=== PATIENT | male | born 1930 | race Caucasian/White ===

== ENCOUNTER 2018-08-22 08:09 | Inpatient (IN) | payer MEDICARE, MEDICAID ==
[~2018-08-22] VITALS: Ht 160 cm; Wt 59.9 kg
[2018-08-22] VITALS (18 sets, daily range): BP systolic 102–180; BP diastolic 44–83
[~2018-08-22 08:09] MED LIST: ceFAZolin sod 1 GM in NS 55 ML IVPB ONE
[2018-08-22] MEDS ORDERED: BENICAR HCT 201 EACH ORAL (09:43)
[2018-08-22] MEDS ORDERED: CELEBREX200 MG ORAL (09:43)
[2018-08-22] MEDS ORDERED: NEXIUM40 MG ORAL (09:43)
[2018-08-22] MEDS ORDERED: CRESTOR10 M2 ORAL (09:43)
[2018-08-22] MEDS ORDERED: ALFUZOSIN HCL10 MG PO (09:43)
[2018-08-22] MEDS ORDERED: BENICAR20 MG ORAL (09:43)
[2018-08-22] MEDS ORDERED: ASPIR 8181 MG ORAL (09:49)
[2018-08-22] MEDS ORDERED: VITAMIN D400 INTLU ORAL (09:49)
[2018-08-22] MEDS ORDERED: BYSTOLIC2.5 MG ORAL (09:49)
[2018-08-22] MEDS ORDERED: LORAZEPAM0.5 MG ORAL (09:49)
[2018-08-22] MEDS ORDERED: [UNRECOGNIZED DRUG - OTHER] PO (09:49)
[2018-08-22] MEDS ORDERED: fentaNYL 100 mcg/2 mL IV ONE (10:06)
--- NOTE | 2018-08-22 11:19 | Pre-Procedure Note/Attestation ---
Pre-Procedure Note/Attestation Complete Prior to Procedure Planned Procedure: not applicable Procedure Narrative: TURP cystolopaxy Indications for Procedure Pre-Operative Diagnosis: bph bladder stones Attestation I attest that I discussed the nature of the procedure; its benefits; risks and complications; and alternatives (and the risks and benefits of such alternatives ), prior to the procedure, with the patient (or the patient's legal senior customer service representative). I attest that, if there was a reasonable possibility of needing a blood transfusion, the patient (or the patient's legal senior customer service representative) was given the [facility] standardized written summary, pursuant to the [place] Blood Safety Act ([place] Health and Safety Code # 1645, as amended). I attest that I re-evaluated the patient just prior to the surgery and that there has been no change in the patient's H&P, except as documented below: Neal Crow MD August 22, 2018 11:19
[2018-08-22] MEDS ORDERED: NS Irrig 1000ml ONE (11:30)
[2018-08-22] MEDS ORDERED: LR 1000ml ONE (11:30)
[2018-08-22] MEDS ORDERED: NS Irrig 2000ml IRRIG ONE (11:30)
[2018-08-22] MEDS ORDERED: NS Irrig 4000ml IRRIG ONE ×2 (11:30→12:14)
--- NOTE | 2018-08-22 12:02 | Anethesia Preoperative Eval ---
Anesthesia Pre-op PMH/ROS General Date of Evaluation: August 22, 2018 Time of Evaluation: 11:15 Anesthesiologist: Meghan ASA Score: ASA 3 Mallampati Score Class I : Soft palate, uvula, fauces, pillars visible Class II: Soft palate, uvula, fauces visible Class III: Soft palate, base of uvula visible Class IV: Only hard plate visible Mallampati Classification: Class II Surgeon: Tristin Diagnosis: BPH Bladder stones Surgical Procedure: TURP, emovbal of bladder stones Anesthesia History: none Family History: no anesthesia problems Allergies: Coded Allergies: No Known Allergies (Unverified , 08/22/18) Medications: see eMAR Patient NPO?: Yes NPO Date: August 21, 2018 NPO Time: 1900 Past Medical History Cardiovascular: Reports: HTN; Denies: CAD, ND, valve dz, arrhythmia, other Pulmonary: Denies: asthma, COPD, GARO, other Gastrointestinal/Genitourinary: Reports: GERD, CRI, other - BPH; Denies: ESRD Neurologic/Psychiatric: Reports: depression/anxiety; Denies: dementia, CVA, TIA, other Endocrine: Denies: DM, hypothyroidism, steroids, other HEENT: Reports: cataract (L), cataract (R); Denies: glaucoma, [place] (L), [place] (R), other Hematology/Immune: Denies: anemia, DVT, bleeding disorder, other Musculoskeletal/Integumentary: Reports: OA; Denies: RA, DJD, DDD, edema, other PMH Narrative: as above see H&P PSxH Narrative: see H&P Anesthesia Pre-op Phys. Exam Physician Exam Last Vital Signs Date Time Temp Pulse Resp B/P (MAP) Pulse Ox O2 Delivery O2 Flow Rate FiO2 08/22/18 09:22 Room Air 08/22/18 09:21 97.8 89 18 180/82 (114) 98 Constitutional: NAD Neurologic: CN 2-12 intact Cardiovascular: RRR, no M/R/G Respiratory: CTA Gastrointestinal: S/NT/ND Airway Exam Mallampati Score: Class II MO: limited Neck: stif ROM: limited Teeth: missing, broken Dentures: no upper, no lower Anesthesia Pre-op A/P Labs see cart Studies Pre-op Studies: EKG - NSR Risk Assessment & Plan Assessment: ASA 3 Plan: GA with LMA Status Change Before Surgery: No Pre-Antibiotics Drug: Ancef 1gr. Given Within 1 Hr of Incision: Yes Time Given: 11:40 Ozzy Christianson MD August 22, 2018 12:02
[2018-08-22] MEDS ORDERED: LR 1000ml 1,000 ML IVLG SCH (12:03)
[2018-08-22] MEDS ORDERED: Ketorolac 30mg Inj IV PRN (12:15)
[2018-08-22] MEDS ORDERED: Hydromorphone 0.5mg/0.5ml inj IVP PRN (12:15)
[2018-08-22] MEDS ORDERED: DiphenhydrAMINE 50mg/ml Inj IVP PRN (12:15)
[2018-08-22] MEDS ORDERED: ePHEDrine 50mg/ml Inj ONE (12:24)
[2018-08-22] MEDS ORDERED: Sodium Chloride 10ml vial INJ ONE (12:24)
[2018-08-22] MEDS ORDERED: HYDROmorphone 1mg/ml Carpuject IVP PRN (13:15)
--- NOTE | 2018-08-22 13:17 | Immediate Post-Op Evaluation ---
Immediate Post-Op Evalulation Immediate Post-Op Evalulation Procedure: TURP removal of bladder stones Date of Evaluation: August 22, 2018 Time of Evaluation: 13:16 IV Fluids: 800 Blood Products: none Estimated Blood Loss: 150 Urinary Output: n/a Blood Pressure Systolic: 148 Blood Pressure Diastolic: 76 Pulse Rate: 78 Respiratory Rate: 20 O2 Sat by Pulse Oximetry: 99 Temperature (Fahrenheit): 97.6 Pain Score (1-10): 1 Nausea: No Vomiting: No Complications none Patient Status: reacts, patent, none Hydration Status: adequate Ozzy Christianson MD August 22, 2018 13:17
--- NOTE | 2018-08-22 13:23 | Brief Operative Note ---
Immediate Post Operative Note Operative Note Pre-op Diagnosis: bph bladder stones Procedure: cystolopaxy, TURP Post-op Diagnosis: same Post-op Diagnosis: same as pre-op Surgeon: Dagoberto Crow Anesthesia: general Specimen: yes Complications: none Condition: stable Fluids: 500 Estimated Blood Loss: minimal Drains: other Implant(s) used?: No Neal Crow MD August 22, 2018 13:23
[2018-08-22 14:14] LABS: BASOPHILS % (AUTO) 0.9 % (0.0-2.0); EOSINOPHILS % (AUTO) 0.8 % (0.0-3.0); HEMATOCRIT 36.3 % (42.0-52.0); HEMOGLOBIN 12.2 G/DL (14.2-18.0); LYMPHOCYTES % (AUTO) 18.1 % (20.0-45.0); MEAN CORPUSCULAR VOLUME 92 FL (80-99); MONOCYTES % (AUTO) 7.6 % (1.0-10.0); NEUTROPHILS % (AUTO) 72.7 % (45.0-75.0); PLATELET COUNT 115 K/UL (150-450); RED BLOOD COUNT 3.95 M/UL (4.70-6.10); RED CELL DISTRIBUTION WIDTH 11.6 % (11.6-14.8); WHITE BLOOD COUNT 5.5 K/UL (4.8-10.8)
[2018-08-22 14:24] LABS: ANION GAP 9 mmol/L (5-15); BLOOD UREA NITROGEN 12 mg/dL (7-18); CALCIUM 7.9 MG/DL (8.5-10.1); CARBON DIOXIDE 25 MMOL/L (21-32); CHLORIDE 109 MMOL/L (98-107); CREATININE 1.2 MG/DL (0.55-1.30); POTASSIUM 3.7 MMOL/L (3.5-5.1); SODIUM 143 MMOL/L (136-145)
--- NOTE | 2018-08-22 15:10 | NUR ---
NURSE NOTES: Stephanie Bruce RN brought patient by bed in stable condition. Alert and oriented x4. Complain of mild pain on surgical site and will continue to monitor. Skin intact and dry. Ingram catheter patent and draining well. CBI on going as ordered. IV dressing intact and dry. Belonging checked. Bed lowest position. Call light within reach. Will continue to monitor.
[2018-08-22] MEDS: D5 1/2NS w/KCl 20mEq 1,000 ML IV SCH (16:36)
[2018-08-22] MEDS: HYDROcodone/Acetamin 5/325 tab ORAL PRN ×2 (16:36→20:44)
[2018-08-22] MEDS: Docusate 100mg cap ORAL SCH (17:19)
--- NOTE | 2018-08-22 19:30 | NUR ---
HAND-OFF: Report given to Rufus RUSSELL. Patient in stable condition.
[2018-08-22] MEDS: ceFAZolin sod 2 GM in D5W 110 ML IV SCH (19:39)
--- NOTE | 2018-08-22 19:45 | NUR ---
NURSE NOTES: Received report DREW Figueroa and rounds made. Received pt laying in bed, AOX4, denies any pain, CBI with bloody red output, no clots noted. IV fluid infusing as ordered, no distress noted. Safety measures maintained. Will continue to monitor.
[2018-08-22] MEDS: Atorvastatin 20mg tab ORAL SCH (20:43)
[2018-08-23] VITALS: BP 120/67
[2018-08-23] MEDS: D5 1/2NS w/KCl 20mEq 1,000 ML IV SCH ×4 (01:00→23:14)
--- NOTE | 2018-08-23 02:50 | NUR ---
NURSE NOTES: PT C/O HEARTBURN. CALLED AND SPOKE WITH DR. MCKEON. ORDERS GIVEN FOR DYSPEPSIA. AWAITING FOR PHARMACY TO VERIFY ORDER.
[2018-08-23] MEDS: ceFAZolin sod 2 GM in D5W 110 ML IV SCH (03:00)
[2018-08-23 04:00] VITALS: BP 120/64
[2018-08-23 07:12] LABS: HEMATOCRIT 27.3 % (42.0-52.0); HEMOGLOBIN 9.4 G/DL (14.2-18.0); MEAN CORPUSCULAR VOLUME 91 FL (80-99); PLATELET COUNT 131 K/UL (150-450); RED CELL DISTRIBUTION WIDTH 11.6 % (11.6-14.8); WHITE BLOOD COUNT 8.4 K/UL (4.8-10.8)
[2018-08-23 07:21] LABS: ANION GAP 7 mmol/L (5-15); BLOOD UREA NITROGEN 13 mg/dL (7-18); CALCIUM 7.9 MG/DL (8.5-10.1); CARBON DIOXIDE 27 MMOL/L (21-32); CHLORIDE 104 MMOL/L (98-107); CREATININE 1.3 MG/DL (0.55-1.30); POTASSIUM 4.4 MMOL/L (3.5-5.1); SODIUM 138 MMOL/L (136-145)
--- NOTE | 2018-08-23 07:34 | NUR ---
HAND-OFF: Report given to DREW Figueroa. Pt in stable condition.
--- NOTE | 2018-08-23 07:35 | NUR ---
NURSE NOTES: Patient lying in bed awake. Complain of pain 5/10 on lower abdomen and no need pain medication at this time. Will offer pain medication again. Skin intact and dry. IV dressing intact and dry. Ingram catheter patent and draining well. CBI on going as ordered. Bed lowest position. Call light within reach. Will continue to monitor.
[2018-08-23 08:00] VITALS: BP 128/67
[2018-08-23] MEDS: Irbesartan 150mg tablet ORAL SCH (09:00)
[2018-08-23] MEDS: Bystolic 2.5mg Tab ORAL SCH (09:00)
[2018-08-23] MEDS: LORazepam 0.5mg tab ORAL SCH (09:00)
[2018-08-23] MEDS: hydroCHLOROthiazide 12.5mg TAB ORAL SCH (09:00)
[2018-08-23] MEDS: Docusate 100mg cap ORAL SCH ×2 (09:03→17:25)
[2018-08-23] MEDS: Vitamin D 1000 IU Tab ORAL SCH (09:03)
--- NOTE | 2018-08-23 09:30 | NUR ---
PT EVALUATION NOTE Patient seen for initial evaluation, see complete evaluation for details. Patient presents with impaired mobility and pain s/p surgical procedure. Patient demonstrated transfers and ambulation x 50 ft with CGA. No assistive device needed. Patient will benefit from skilled inpatient PT intervention to address strength, endurance, safety and functional mobility. Anticipate discharge home once medically cleared by MD. No DME needs identified at this time. Addendum: 08/23/18 at 1244 by ALEXANDRA MOTT PT Amended: Links added.
--- NOTE | 2018-08-23 10:44 | 48 Hour Post Anesthesia Eval ---
Post Anesthesia Evaluation Procedure: TURP removal of bladder stones Date of Evaluation: August 23, 2018 Time of Evaluation: 10:43 Blood Pressure Systolic: 132 0: 76 Pulse Rate: 74 Respiratory Rate: 20 Temperature (Fahrenheit): 97.6 O2 Sat by Pulse Oximetry: 98 Airway: patent Nausea: No Vomiting: No Pain Intensity: 2 Hydration Status: adequate Cardiopulmonary Status: stable Mental Status/LOC: patient returned to baseline Follow-up Care/Observations: n/a Post-Anesthesia Complications: none Follow-up care needed: N/A Ozzy Christianson MD August 23, 2018 10:44
[2018-08-23 12:00] VITALS: BP 118/66
--- NOTE | 2018-08-23 13:59 | NUR ---
CASE MANAGEMENT:REVIEW 88 YR OLD MALE HERE FOR ELECTIVE SURGERY SI: BLADDER STONES 97.5 77 18 118/66 97% ON RA IS: TO SURGERY FOR: CYSTOPEXY, TURP : TO MED/SURG 3 08/23/18 SI: POD #1.....S/P TURP 97.5 77 18 118/66 97% ON RA H/H-9.4/27.3 PLT-131 GLUCOSE+148 CA-7.9 IS: IVF@100/HR BYSTOLIC PO QD PROTONIX PO QD AVAPRO PO QD HCTZ PO QD : MED/SURG STATUS 3 [facility]
[2018-08-23 16:00] VITALS: BP 144/101
--- NOTE | 2018-08-23 16:45 | History and Physical Report ---
DATE OF ADMISSION: 08/22/2018 HISTORY AND PHYSICAL/INTERNAL MEDICINE CONSULTATION HISTORY OF PRESENT ILLNESS: This is an 88-year-old male, who has undergone TURP yesterday by Dr. Neal Crow. He states he is feeling well. His bladder irrigation is continuing and his urine is dark red in color. The patient states he is feeling well. PAST MEDICAL HISTORY: Notable for hypertension, hyperlipidemia, degenerative osteoarthrosis, history of cerebral atherosclerosis. PREVIOUS SURGICAL HISTORY: Include eyes cataract surgery and previous rectal surgery. REVIEW OF SYSTEMS: Denies any headaches, hematemesis, melena, hematochezia, night sweats, or weight loss. HOME MEDICATIONS: Include Bystolic, aspirin, Ativan, vitamin D, Rozerem, Crestor, Nexium, olmesartan, Folgard. ALLERGIES: None reported. PHYSICAL EXAMINATION: GENERAL: Reveals an 88-year-old male. HEENT: Unremarkable. LUNGS: Clear breath sounds bilaterally. ABDOMEN: Soft. EXTREMITIES: There is no edema. NEUROLOGIC: Nonfocal. GENITOURINARY: Ingram catheter in place. LABORATORY DATA: Lab testing shows hemoglobin 9.4. Glucose 148. IMPRESSION: 1. Hypertension. 2. Hyperlipidemia. 3. Osteoarthrosis. 4. Status post TURP. DISCUSSION: Continue present care and medications. I will restart his home medications. Hold aspirin for another day. Continue bladder irrigation. Check labs in the a.m. Discharge planning for home tomorrow. Santo Short M.D. DR: RALPH JOB#: [id number] CC:
[2018-08-23] MEDS ORDERED: NS Irrig 4000ml IRRIG ONE (17:18)
--- NOTE | 2018-08-23 19:30 | NUR ---
HAND-OFF: Report given to Shalom RUSSELL. Patient in stable condition.
--- NOTE | 2018-08-23 19:45 | NUR ---
NURSE NOTES: Received report from DREW Figueroa. Patient in bed awake showing no signs of acute distress. Respiration even and non labored on room air. No sob noted. CBI patent and intact. Drains showing light red and some clots. IV line patent and intact. Bed in lowest position, wheels locked, and bed alarm on. Call light within reach. All needs attended and met will continue plan of care.
[2018-08-23 20:00] VITALS: BP 143/75
[2018-08-23] MEDS: Atorvastatin 20mg tab ORAL SCH (21:24)
[2018-08-24] VITALS (7 sets, daily range): BP systolic 111–148; BP diastolic 55–77
--- NOTE | 2018-08-24 01:31 | NUR ---
NURSE NOTES:Patient received from Tamika Mcdaniel patient denies any paina t this time . no s./s of distress noted . CBI draining to light pink color no clots noted. IVF infusing well . call light within reach . bed in low position at all times . well continue to monitor..
--- NOTE | 2018-08-24 01:31 | NUR ---
Report given to SHELLY Muhammad. Patient stable.
--- NOTE | 2018-08-24 06:00 | NUR ---
NURSE NOTES:Patient 13,100 intake 14,000 output true output 850 cc
[2018-08-24 07:24] LABS: BASOPHILS % (AUTO) 0.5 % (0.0-2.0); EOSINOPHILS % (AUTO) 1.5 % (0.0-3.0); HEMATOCRIT 25.4 % (42.0-52.0); HEMOGLOBIN 8.7 G/DL (14.2-18.0); LYMPHOCYTES % (AUTO) 13.1 % (20.0-45.0); MEAN CORPUSCULAR VOLUME 92 FL (80-99); MONOCYTES % (AUTO) 9.2 % (1.0-10.0); NEUTROPHILS % (AUTO) 75.9 % (45.0-75.0); PLATELET COUNT 118 K/UL (150-450); RED BLOOD COUNT 2.77 M/UL (4.70-6.10); RED CELL DISTRIBUTION WIDTH 11.9 % (11.6-14.8); WHITE BLOOD COUNT 8.2 K/UL (4.8-10.8)
--- NOTE | 2018-08-24 07:30 | NUR ---
HAND-OFF: Report given to Shani Serrano
--- NOTE | 2018-08-24 07:30 | NUR ---
NURSE NOTES: Received report from DREW Muhammad. The patient denies of acute distress or shortness of breath. The patient's bed in the lowest position, call light in reach, and fall precaution reinforced. Will continue plan of care.
[2018-08-24 08:06] LABS: ANION GAP 5 mmol/L (5-15); BLOOD UREA NITROGEN 7 mg/dL (7-18); CALCIUM 8.5 MG/DL (8.5-10.1); CARBON DIOXIDE 28 MMOL/L (21-32); CHLORIDE 110 MMOL/L (98-107); CREATININE 1.2 MG/DL (0.55-1.30); POTASSIUM 4.4 MMOL/L (3.5-5.1); SODIUM 143 MMOL/L (136-145)
--- NOTE | 2018-08-24 08:17 | Pulmonology Progress Note ---
Assessment/Plan Assessment/Plan IMPRESSION: 1. Hypertension. 2. Hyperlipidemia. 3. Osteoarthrosis. 4. Status post TURP. DISCUSSION: Continue present care and medications. Hold aspirin for another day. Continue bladder irrigation. Check labs in the a.m. Discharge planning for home tomorrow. Subjective Interval Events: Still having hematuria Constitutional: Reports: no symptoms HEENT: Repors: no symptoms Respiratory: Reports: no symptoms Cardiovascular: Reports: no symptoms Gastrointestinal/Abdominal: Reports: no symptoms Allergies: Coded Allergies: No Known Allergies (Unverified , 08/22/18) Objective Last 24 Hour Vital Signs Date Time Temp Pulse Resp B/P (MAP) Pulse Ox O2 Delivery O2 Flow Rate FiO2 08/24/18 04:00 97.5 72 18 128/76 (93) 08/24/18 00:00 98.0 77 18 148/71 (96) 97 08/23/18 21:00 Room Air 08/23/18 20:00 97.8 98 18 143/75 (97) 99 08/23/18 16:00 97.4 72 19 144/101 (115) 97 08/23/18 12:00 97.5 77 18 118/66 (83) 97 08/23/18 10:44 74 20 98 08/23/18 09:00 Room Air Intake and Output 08/23/18 08/24/18 18:59 06:59 Intake Total 220 ml Output Total 1600 ml 850 ml Balance -1380 ml -850 ml Intake Oral 120 ml IV Total 100 ml Output Urine Total 1600 ml 850 ml General Appearance: no acute distress HEENT: normocephalic Respiratory/Chest: chest wall non-tender, lungs clear Cardiovascular: normal peripheral pulses, normal rate Abdomen: normal bowel sounds, soft, non tender Laboratory Tests 08/24/18 05:46: White Blood Count 8.2, Red Blood Count 2.77L, Hemoglobin 8.7L, Hematocrit 25.4L , Mean Corpuscular Volume 92, Mean Corpuscular Hemoglobin 31.4H, Mean Corpuscular Hemoglobin Concent 34.3, Red Cell Distribution Width 11.9, Platelet Count 118L, Mean Platelet Volume 8.4, Neutrophils (%) (Auto) 75.9H, Lymphocytes (%) (Auto) 13.1L, Monocytes (%) (Auto) 9.2, Eosinophils (%) (Auto) 1.5, Basophils (%) (Auto) 0.5, Sodium Level 143, Potassium Level 4.4, Chloride Level 110H, Carbon Dioxide Level 28, Anion Gap 5, Blood Urea Nitrogen 7, Creatinine 1.2, Estimat Glomerular Filtration Rate , Glucose Level 108H, Calcium Level 8.5 Current Medications Medications (Trade) Dose Ordered Sig/German Route PRN Reason Start Time Stop Time Status Last Admin Dose Admin Acetaminophen (Tylenol) 650 mg Q4H PRN ORAL FEVER 08/22/18 13:15 09/21/18 13:14 Acetaminophen (Tylenol) 650 mg Q6H PRN ORAL Mild Pain (Pain Scale 1-3) 08/22/18 13:15 09/21/18 13:14 Acetaminophen/ Hydrocodone Bitart ([place] 5/325) 1 tab Q4H PRN ORAL Moderate Pain (Pain Scale 4-6) 08/22/18 13:15 08/29/18 13:14 08/22/18 20:44 Al Hydroxide/Mg Hydroxide (Mylanta) 30 ml Q6H PRN ORAL DYSPEPSIA 08/23/18 02:45 09/22/18 02:44 08/23/18 22:08 Atorvastatin Calcium (Lipitor) 20 mg BEDTIME ORAL 08/22/18 21:00 09/21/18 20:59 08/23/18 21:24 Dextrose/ Electrolytes 1,000 ml @ 100 mls/hr Q10H IV 08/22/18 15:00 09/21/18 14:59 08/23/18 23:14 Docusate Sodium (Colace) 100 mg TWICE A DAY ORAL 08/22/18 18:00 09/21/18 17:59 08/23/18 17:25 Hydrochlorothiazide (Hydrodiuril) 12.5 mg DAILY ORAL 08/23/18 09:00 09/22/18 08:59 Hydromorphone HCl (Dilaudid) 1 mg Q3H PRN IVP pain score 4-6 08/22/18 13:15 08/29/18 13:14 Irbesartan (Avapro) 150 mg DAILY ORAL 08/23/18 09:00 09/22/18 08:59 Lorazepam (Ativan) 0.5 mg DAILY ORAL 08/23/18 09:00 08/30/18 08:59 Nebivolol (Bystolic) 5 mg DAILY ORAL 08/23/18 09:00 09/22/18 08:59 Ondansetron HCl (Zofran) 4 mg Q6H PRN IVP Nausea & Vomiting 08/22/18 13:15 09/21/18 13:14 Pantoprazole (Protonix) 40 mg DAILY ORAL 08/23/18 09:00 09/22/18 08:59 08/23/18 09:03 Temazepam (Restoril) 7.5 mg DAILYPRN PRN ORAL Insomnia 08/22/18 13:15 08/29/18 13:14 08/23/18 23:14 Vitamin D (Vitamin D) 1,000 intlu DAILY ORAL 08/23/18 09:00 09/22/18 08:59 08/23/18 09:03 Santo Short MD August 24, 2018 08:17
[2018-08-24] MEDS ORDERED: COLACE100 MG ORAL (08:18)
[2018-08-24] MEDS ORDERED: NORCO 5-325 TA1 EACH ORAL (08:18)
[2018-08-24] MEDS: LORazepam 0.5mg tab ORAL SCH (09:42)
[2018-08-24] MEDS: Irbesartan 150mg tablet ORAL SCH (09:43)
[2018-08-24] MEDS: Bystolic 2.5mg Tab ORAL SCH (09:43)
[2018-08-24] MEDS: Docusate 100mg cap ORAL SCH ×2 (09:44→18:00)
[2018-08-24] MEDS: hydroCHLOROthiazide 12.5mg TAB ORAL SCH (09:44)
[2018-08-24] MEDS: Vitamin D 1000 IU Tab ORAL SCH (09:44)
--- NOTE | 2018-08-24 12:10 | NUR ---
NURSE NOTES: Based on nursing home physician's vital sign log, the patient's temperature was 101.7F. After checking the patient temperature, check back the temperature again. Based on my reading, his temperature was 98.2F. No signs and symptoms of infection or hot flushes. Will continue to monitor closely. Addendum: 08/24/18 at 1547 by Eliel Rodgers RN Notified to charge nurse regarding the temperature.
--- NOTE | 2018-08-24 12:40 | NUR ---
NURSE NOTES: Notified to Dr. Crow regarding drop in hemoglobin level of 9.4 to 8.7 with color change in more red in urine bag with irrigation. No new order but close monitoring per Dr. Crow. Will continue to monitor.
--- NOTE | 2018-08-24 15:30 | NUR ---
NURSE NOTES: Received Levaquin QD #7, Colace, and [place] 5/325 #30 received from [facility]. Counted Levaquin and [place] with the patient. Will give to the pharmacy so that he gets the medication before discharge.
--- NOTE | 2018-08-24 15:43 | NUR ---
NURSE NOTES: Notified to Dr. Crow that small size blood clot came out and the color of urine output through irrigation got roll inspector red. Will follow up for Dr. Crow and will continue to monitor the patient.
--- NOTE | 2018-08-24 16:51 | NUR ---
NURSE NOTES: Medication receipt # is [id number]. It will be stored at our pharmacy until discharge.
[2018-08-24] MEDS: D5 1/2NS w/KCl 20mEq 1,000 ML IV SCH (17:06)
--- NOTE | 2018-08-24 19:30 | NUR ---
HAND-OFF: Report given to Compa Rodgers RN. The patint is resting on the bed without acute distress or shortness of breath. The patient's bed in the lowest position, call light in reach, and fall precaution reinforced. Endorsed plan of care.
--- NOTE | 2018-08-24 19:31 | NUR ---
NURSE NOTES: Received patient in no apparent distress. A&OX4. IV site patent and intact. Three way Ingram cath on, draining well by gravity, continuos irrigation on, pinkish urine noted. Bed in lowest position. Call light within reach. Will continue to monitor.
[2018-08-24] MEDS: Atorvastatin 20mg tab ORAL SCH (21:25)
[2018-08-25] VITALS: BP 128/57
[2018-08-25] MEDS: D5 1/2NS w/KCl 20mEq 1,000 ML IV SCH (03:22)
[2018-08-25 04:00] VITALS: BP 125/62
[2018-08-25 07:22] LABS: BASOPHILS % (AUTO) 0.6 % (0.0-2.0); EOSINOPHILS % (AUTO) 1.9 % (0.0-3.0); HEMATOCRIT 24.5 % (42.0-52.0); HEMOGLOBIN 8.4 G/DL (14.2-18.0); LYMPHOCYTES % (AUTO) 14.2 % (20.0-45.0); MEAN CORPUSCULAR VOLUME 91 FL (80-99); MONOCYTES % (AUTO) 9.7 % (1.0-10.0); NEUTROPHILS % (AUTO) 73.6 % (45.0-75.0); PLATELET COUNT 118 K/UL (150-450); RED BLOOD COUNT 2.68 M/UL (4.70-6.10); RED CELL DISTRIBUTION WIDTH 11.9 % (11.6-14.8); WHITE BLOOD COUNT 8.7 K/UL (4.8-10.8)
--- NOTE | 2018-08-25 07:35 | NUR ---
NURSE NOTES: Report received from Compa RUSSELL, rounds made. Patient alert, oriented x4, calm. No SOB on RA, pain or NV. IVF infusing to right hand at 100 ml/hr, as ordered, site asymptomatic. [address], CBI running at low to moderate rate, bright red output noted in drainage bag. Bilateral SCDs on. Encouraged IS. Call light in reach, bed in lowest position, will continue to monitor.
[2018-08-25 07:44] LABS: ANION GAP 5 mmol/L (5-15); BLOOD UREA NITROGEN 15 mg/dL (7-18); CALCIUM 8.7 MG/DL (8.5-10.1); CARBON DIOXIDE 28 MMOL/L (21-32); CHLORIDE 106 MMOL/L (98-107); CREATININE 1.3 MG/DL (0.55-1.30); POTASSIUM 4.5 MMOL/L (3.5-5.1); SODIUM 139 MMOL/L (136-145)
--- NOTE | 2018-08-25 07:49 | NUR ---
HAND-OFF: Report given to Hanna RUSSELL.
[2018-08-25 08:00] VITALS: BP 112/52
[2018-08-25] MEDS: LORazepam 0.5mg tab ORAL SCH (10:12)
[2018-08-25] MEDS: hydroCHLOROthiazide 12.5mg TAB ORAL SCH (10:13)
[2018-08-25] MEDS: Docusate 100mg cap ORAL SCH ×2 (10:17→18:02)
[2018-08-25] MEDS: Bystolic 2.5mg Tab ORAL SCH (10:17)
[2018-08-25] MEDS: Irbesartan 150mg tablet ORAL SCH (10:17)
[2018-08-25] MEDS: Vitamin D 1000 IU Tab ORAL SCH (10:18)
[2018-08-25] MEDS ORDERED: NS Irrig 4000ml IRRIG ONE (10:49)
[2018-08-25 12:00] VITALS: BP 147/71
--- NOTE | 2018-08-25 12:00 | NUR ---
NURSE NOTES: CBI/IVF discontinued at 1030. Catheter stopper applied. FC remains in place. Patient denies abdominal pain or pressure. Patient up with PT, ambulated in halls with walker, gait steady, tolerated well. Will continue to monitor.
--- NOTE | 2018-08-25 15:13 | Pulmonology Progress Note ---
Assessment/Plan Assessment/Plan IMPRESSION: 1. Hypertension. 2. Hyperlipidemia. 3. Osteoarthrosis. 4. Status post TURP. DISCUSSION: Continue present care and medications. Hold aspirin for another day. Continue bladder irrigation. Discharge planning for home today. Subjective Interval Events: FOr Dc home today; feels well Constitutional: Reports: no symptoms HEENT: Repors: no symptoms Respiratory: Reports: no symptoms Cardiovascular: Reports: no symptoms Gastrointestinal/Abdominal: Reports: no symptoms Genitourinary: Reports: no symptoms Neurologic: Reports: no symptoms Allergies: Coded Allergies: No Known Allergies (Unverified , 08/22/18) Objective Last 24 Hour Vital Signs Date Time Temp Pulse Resp B/P (MAP) Pulse Ox O2 Delivery O2 Flow Rate FiO2 08/25/18 12:00 98.0 71 16 147/71 (96) 98 08/25/18 10:17 150/63 08/25/18 08:00 98.1 98 16 112/52 (72) 98 08/25/18 04:00 97.8 65 19 125/62 (83) 99 08/25/18 00:00 98.0 61 18 128/57 (80) 98 08/24/18 21:00 Room Air 08/24/18 20:00 97.7 62 18 127/55 (79) 98 08/24/18 16:00 98.2 64 20 111/65 (80) 96 Intake and Output 08/24/18 08/25/18 19:00 07:00 Intake Total 500 ml 1200 ml Output Total 1600 ml 29366 ml Balance -1100 ml -8800 ml IV Total 500 ml 1200 ml Output Urine Total 1600 ml 52649 ml General Appearance: no acute distress HEENT: normocephalic Respiratory/Chest: chest wall non-tender, lungs clear Cardiovascular: normal peripheral pulses, normal rate Abdomen: normal bowel sounds Laboratory Tests 08/25/18 06:23: White Blood Count 8.7, Red Blood Count 2.68L, Hemoglobin 8.4L, Hematocrit 24.5L , Mean Corpuscular Volume 91, Mean Corpuscular Hemoglobin 31.4H, Mean Corpuscular Hemoglobin Concent 34.4, Red Cell Distribution Width 11.9, Platelet Count 118L, Mean Platelet Volume 8.9, Neutrophils (%) (Auto) 73.6, Lymphocytes ( %) (Auto) 14.2L, Monocytes (%) (Auto) 9.7, Eosinophils (%) (Auto) 1.9, Basophils (%) (Auto) 0.6, Sodium Level 139, Potassium Level 4.5, Chloride Level 106, Carbon Dioxide Level 28, Anion Gap 5, Blood Urea Nitrogen 15, Creatinine 1.3, Estimat Glomerular Filtration Rate , Glucose Level 97, Calcium Level 8.7 Current Medications Medications (Trade) Dose Ordered Sig/German Route PRN Reason Start Time Stop Time Status Last Admin Dose Admin Acetaminophen (Tylenol) 650 mg Q4H PRN ORAL FEVER 08/22/18 13:15 09/21/18 13:14 Acetaminophen (Tylenol) 650 mg Q6H PRN ORAL Mild Pain (Pain Scale 1-3) 08/22/18 13:15 09/21/18 13:14 Acetaminophen/ Hydrocodone Bitart ([place] 5/325) 1 tab Q4H PRN ORAL Moderate Pain (Pain Scale 4-6) 08/22/18 13:15 08/29/18 13:14 08/22/18 20:44 Al Hydroxide/Mg Hydroxide (Mylanta) 30 ml Q6H PRN ORAL DYSPEPSIA 08/23/18 02:45 09/22/18 02:44 08/23/18 22:08 Atorvastatin Calcium (Lipitor) 20 mg BEDTIME ORAL 08/22/18 21:00 09/21/18 20:59 08/24/18 21:25 Docusate Sodium (Colace) 100 mg TWICE A DAY ORAL 08/22/18 18:00 09/21/18 17:59 08/25/18 10:17 Hydrochlorothiazide (Hydrodiuril) 12.5 mg DAILY ORAL 08/23/18 09:00 09/22/18 08:59 08/25/18 10:13 Hydromorphone HCl (Dilaudid) 1 mg Q3H PRN IVP pain score 4-6 08/22/18 13:15 08/29/18 13:14 Irbesartan (Avapro) 150 mg DAILY ORAL 08/23/18 09:00 09/22/18 08:59 08/25/18 10:17 Lorazepam (Ativan) 0.5 mg DAILY ORAL 08/23/18 09:00 08/30/18 08:59 08/25/18 10:12 Nebivolol (Bystolic) 5 mg DAILY ORAL 08/23/18 09:00 09/22/18 08:59 08/25/18 10:17 Ondansetron HCl (Zofran) 4 mg Q6H PRN IVP Nausea & Vomiting 08/22/18 13:15 09/21/18 13:14 Pantoprazole (Protonix) 40 mg DAILY ORAL 08/23/18 09:00 09/22/18 08:59 08/25/18 10:12 Temazepam (Restoril) 7.5 mg DAILYPRN PRN ORAL Insomnia 08/22/18 13:15 08/29/18 13:14 08/23/18 23:14 Vitamin D (Vitamin D) 1,000 intlu DAILY ORAL 08/23/18 09:00 09/22/18 08:59 08/25/18 10:18 Santo Short MD August 25, 2018 15:13
[2018-08-25 16:00] VITALS: BP 128/57
--- NOTE | 2018-08-25 17:00 | NUR ---
NURSE NOTES: Patient states he has no ride home. Friend not available to take patient home. Nursing station supervisor notified for Taxi [employer]oucher.
[2018-08-25] MEDS ORDERED: Sterile Water Irrig 1000ml IRRIG ONE (18:29)
--- NOTE | 2018-08-25 18:33 | NUR ---
NURSE NOTES: Discharge instructions, prescription medications (filled by pharmacy) and supplies (basin x2, leg bag, large drainage bag, canister), reviewed with patient and his helper for tonight, verbalized understanding. Demonstrated on how to connect and disconnect drainage bag and leg bag, verbalized understanding. Leg bag connected. Denies abdominal pain or pressure. All belongings, discharge instructions, prescription medication and supplies given to patient. IV heplock removed, no active bleeding. Patient sent down to lobby via in stable condition. Discharged home at 1833.
--- NOTE | 2018-08-27 08:13 | Discharge Summary ---
Discharge Summary Hospital Course Date of Admission August 22, 2018 at 08:39 Date of Discharge August 25, 2018 at 18:30 Admitting Diagnosis BPH, bladder stones Reason for Hospitalization: elective surgery HPI Justin Price, 88 year old male, was admitted on August 22, 2018 at 08:39 for enlarged prostate, bladder stones. Patient was admitted for elective surgery. Consultations Dr Short/IM Procedures s/p 08/22/[address] Crow TURP, removal of bladder stones/ cystolithopaxy Hospital Course Course of recovery unremarkable Patient initially was on IV fluids with continuous bladder irrigation Urine output closely monitored, manual irrigation provided as needed Pain management was addressed Patient started on empiric antibiotic Bowel regimen instituted Patient slowly started on diet and was advanced as tolerated. Patient was ambulated with walker under physical therapist supervision Fall precautions maintained , patient was able to ambulate safely Blood pressure was managed with beta-chelsie, ARB and hydrochlorothiazide, remained stable Statin continued Aspirin was on hold prior to procedure and will be on hold for additional one day upon discharge Hemoglobin and hematocrit were closely monitored, prior to discharge hemoglobin 8.4, hematocrit 24.5. Urine output cleared, no clots Continuous ladder irrigation was discontinued Patient was stable for discharge home: urine output clear, pain controlled, ambulated safely, tolerated diet, hemodynamically stable Discharge instruction and supplies provided Nursing staff reviewed with the patient and demonstrated how to connect and disconnect drainage bag and leg bag Patient verbalized understanding Ingram catheter was changed to leg bag prior to discharge Patient was stable for discharge Outpatient follow-up with surgeon as advised FINAL DIAGNOSES BPH Bladder stones s/p TURP, removal of bladder stones Hypertension Hyperlipidemia Osteoarthritis Discharge Medications New Medications: Docusate Sodium* (Colace*) 100 Mg Capsule 100 MG ORAL TWICE A DAY for 14 Days, CAP Hydrocodone Bit/Acetaminophen 5-325* (Dexter 5-325*) 1 Each Tablet 1 TAB ORAL Q4H PRN for 7 Days, TAB Continued Medications: Alfuzosin* (Uroxatrol*) 10 Mg Tab.er.24h 10 MG PO DAILY, TAB (This prescription has been renewed) Take immediately after a meal at the same time each day. Swallow tablet whole; do not crush or chew Aspirin* (Aspir 81*) 81 Mg Tablet. 81 MG ORAL DAILY, TAB (This prescription has been renewed) Celecoxib* (Celebrex*) 200 Mg Capsule 200 MG ORAL DAILY, CAP (This prescription has been renewed) Esomeprazole Magnesium (Nexium) 40 Mg Capsule.dr 40 MG ORAL DAILY, CAP (This prescription has been renewed) Lorazepam* (Lorazepam*) 0.5 Mg Tablet 0.5 MG ORAL DAILY, TAB (This prescription has been renewed) Nebivolol Hcl* (Bystolic*) 2.5 Mg Tablet 5 MG ORAL DAILY, TAB (This prescription has been renewed) Olmesartan/Hydrochlorothiazide 20-12.5 (Benicar Hct 20-12.5 Mg Tablet) 1 Each Tablet 1 TAB ORAL DAILY, TAB (This prescription has been renewed) Rosuvastatin Calcium* (Crestor*) 10 Mg Tablet 10 MG ORAL DAILY, TAB (This prescription has been renewed) [Virt Shannen] () 25 MG PO DAILY (This prescription has been renewed) Vitamin D (Vitamin D3) 400 Unit Tablet 1000 UNITS ORAL DAILY, TAB (This prescription has been renewed) Discharge Condition Upon Discharge: stable Discharge Disposition Patient was discharged home Discharge Instructions Discharge Instructions Special Instructions I have been assigned to complete a D/C Summary on this account. I was not involved in the patient management Tish Alejandra NP August 27, 2018 08:13
--- NOTE | 2018-08-29 03:00 | Operative Note - Dictated ---
DATE OF OPERATION: 08/22/2018 PREOPERATIVE DIAGNOSES: 1. Multiple bladder stones. 2. BPH. POSTOPERATIVE DIAGNOSES: 1. Multiple bladder stones. 2. BPH. OPERATIONS: 1. Cystolitholapaxy with laser. 2. Transurethral resection of the prostate. OPERATED BY: Neal Crow M.D. ANESTHESIA: General. FINDINGS: Enlarged prostate, multiple bladder stones. INDICATIONS FOR SURGERY: The patient had recurrent UTIs and hematuria. Cystoscopy showed multiple bladder stones and BPH. Treatment options were explained to the patient including all potential complications and he signed the consent. DESCRIPTION OF PROCEDURE: The patient was brought to the operating room, placed in lithotomy position, and prepped and draped in standard fashion. Under general anesthesia, cystoscope was introduced into the bladder. Using 1000 micron fiber, the stones were fragmented into small pieces and extracted with the Azalea evacuator. After that bipolar TURP was performed without any complications. All the chips were evacuated. Bleeding was stopped with the button electrode. A 24-Persian Ingram catheter was placed . The patient tolerated the procedure well. Neal Crow M.D. DR: JAKOB JOB#: [id number] CC:
== END 2018-08-25 18:30 | disposition home or self-care (01) | DRG 714 ==
LOC: SDSOVERFLO 08:39 → 3E 14:44
PROC: 0TCB8ZZ Extirpation of Matter from Bladder, Via Natural or Artificial Opening Endoscopic (ICD-10-PCS; principal; 2018-08-22 11:15)
PROC: 0T9B80Z Drainage of Bladder with Drainage Device, Via Natural or Artificial Opening Endoscopic (ICD-10-PCS; principal; 2018-08-22 11:15)
PROC: 0V508ZZ Destruction of Prostate, Via Natural or Artificial Opening Endoscopic (ICD-10-PCS; principal; 2018-08-22 11:15)
DX: N40.0 Benign prostatic hyperplasia without lower urinary tract symptoms (principal); N21.0 Calculus in bladder; Z79.82 Long term (current) use of aspirin; M19.90 Unspecified osteoarthritis, unspecified site; I10 Essential (primary) hypertension; E78.5 Hyperlipidemia, unspecified
CPT/HCPCS: 36415; 80048; 85007; 85025; 86850; 86900; 86901; 87081; 94003; 94150

== ENCOUNTER 2019-01-01 15:47 | Inpatient (IN) | payer MEDICARE, MEDICAID ==
[~2019-01-01] VITALS: Ht 160 cm; Wt 60.8 kg
[~2019-01-01 15:47] MED LIST changes: +ALFUZOSIN HCL10 MG PO; +ASPIR 8181 MG ORAL; +BENICAR HCT 201 EACH ORAL; +BENICAR20 MG ORAL; +BYSTOLIC2.5 MG ORAL; +CELEBREX200 MG ORAL; +COLACE100 MG ORAL; +CRESTOR10 M2 ORAL; +LORAZEPAM0.5 MG ORAL; +NEXIUM40 MG ORAL; +NORCO 5-325 TA1 EACH ORAL; +VITAMIN D400 INTLU ORAL; +[UNRECOGNIZED DRUG - OTHER] PO; -ceFAZolin sod 1 GM in NS 55 ML IVPB ONE
[2019-01-01] MEDS ORDERED: UNOBMED (15:56)
[2019-01-01] MEDS ORDERED: Omnipaue 350mg/ml 100ml vial INJ PRN (16:15)
[2019-01-01 16:34] VITALS: BP 190/68
--- NOTE | 2019-01-01 16:41 | NUR ---
ED Nurse Note: PT BP 180/73, no signs of respiratory distress on RA, PT is relaxed, calm, in bed in semi-fowlers position, side rails x 2 up. PT say he has no pain. Friend at bedside. MD Shirley made aware of PT BP.
--- NOTE | 2019-01-01 16:44 | NUR ---
ED Nurse Note: MD Shirley made aware about BP 180/73, told to hold 500cc NS.
[2019-01-01 16:46] LABS: EOSINOPHILS % (AUTO) 1.4 % (0.0-3.0); HEMOGLOBIN 11.2 G/DL (14.2-18.0); MEAN CORPUSCULAR VOLUME 83 FL (80-99); NEUTROPHILS % (AUTO) 74.6 % (45.0-75.0); PLATELET COUNT 267 K/UL (150-450); RED BLOOD COUNT 4.23 M/UL (4.70-6.10); RED CELL DISTRIBUTION WIDTH 16.5 % (11.6-14.8); WHITE BLOOD COUNT 8.6 K/UL (4.8-10.8)
[2019-01-01 16:59] LABS: INR 1.1 (0.9-1.1)
[2019-01-01 17:05] LABS: ANION GAP 11 mmol/L (5-15); BLOOD UREA NITROGEN 20 mg/dL (7-18); CALCIUM 9.3 MG/DL (8.5-10.1); CARBON DIOXIDE 25 MMOL/L (21-32); CHLORIDE 108 MMOL/L (98-107); CREATININE 1.4 MG/DL (0.55-1.30); POTASSIUM 4.4 MMOL/L (3.5-5.1); SODIUM 144 MMOL/L (136-145)
--- NOTE | 2019-01-01 17:16 | Emergency Room Report ---
History of Present Illness General Chief Complaint: Dyspnea/Respdistress Source: Patient Present Illness HPI 88-year-old male presents ED for evaluation. Patient presenting with shortness of breath which occurred last night. States he has no shortness of breath at this time. 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 Denies chest pain. States that 3 weeks ago he fell and injured his right hip. Complaining of some right hip pain, dull, 5 out of 10, nonradiating. Is able to walk. Denies any other injuries. Denies cough. No other aggravating relieving factors. Denies any other associated symptoms Allergies: Coded Allergies: No Known Allergies (Unverified , 08/22/18) Patient History Past Medical History: HTN Past Surgical History: none Pertinent Family History: none Social History: Denies: smoking, alcohol use, drug use Immunizations: UTD Reviewed Nursing Documentation: PMH: Agreed; PSxH: Agreed Nursing Documentation-PMH Past Medical History: No History, Except For Hx Cardiac Problems: Yes Hx Hypertension: Yes Hx Cancer: No Hx Gastrointestinal Problems: Yes Hx Neurological Problems: No Review of Systems All Other Systems: negative except mentioned in HPI Physical Exam Vital Signs Date Time Temp Pulse Resp B/P (MAP) Pulse Ox O2 Delivery O2 Flow Rate FiO2 01/01/19 15:50 98.2 62 16 192/77 (115) 93 Room Air Sp02 EP Interpretation: reviewed, normal General Appearance: no apparent distress, alert, GCS 15, non-toxic Head: normocephalic, atraumatic Eyes: bilateral eye normal inspection, bilateral eye PERRL ENT: hearing grossly normal, normal pharynx, no angioedema, normal voice Neck: full range of motion, supple/symm/no masses Respiratory: chest non-tender, lungs clear, normal breath sounds, speaking full sentences Cardiovascular #1: regular rate, rhythm, no edema Cardiovascular #2: 2+ carotid (R), 2+ carotid (L), 2+ radial (R), 2+ radial (L) , 2+ dorsalis pedis (R), 2+ dorsalis pedis (L) Gastrointestinal: normal bowel sounds, non tender, soft, non-distended, no guarding, no rebound Rectal: deferred Genitourinary: normal inspection, no CVA tenderness Musculoskeletal: back normal, gait/station normal, normal range of motion, tender - R hip Neurologic: alert, oriented x3, responsive, motor strength/tone normal, sensory intact, speech normal Psychiatric: judgement/insight normal, memory normal, mood/affect normal, no suicidal/homicidal ideation Reflexes: 3+ bicep (R), 3+ bicep (L), 3+ tricep (R), 3+ tricep (L), 3+ knee (R) , 3+ knee (L) Skin: no rash Lymphatic: no adenopathy Medical Decision Making Diagnostic Impression: Primary Impression: Dyspnea Qualified Codes: R06.00 - Dyspnea, unspecified Additional Impression: Pleural effusion ER Course Hospital Course 88 yo M presents with SOB. h/o PE. Differential diagnoses include: Pneumonia, CHF exacerbation, pneumothorax, fluid overload Clinical course Patient placed on stretcher. On court recording monitor with stable vitals. After initial history and physical, I ordered labs, IV fluids, EKG, chest x-ray, CTA chest Labs - no leukocytosis, hb/hct stable, electrolytes ok, troponins negative, BNP elevated EKG - NSr, no acute ischemic changes intperreted by me CXR - bilateral effusions CTA chest- no PE, bilateral effusions with loculations I discussed findings with the patient. Given Lasix. Given antibiotics. Case discussed with Dr. Burns and he agreed to the patient to his service for further care and support I feel this is a highly complex case requiring extensive working including EKG/ Rhythm strip, Xray/CT/US, Blood/urine lab work, repeat exams while in ED, and administration of strong opiates/narcotics for pain control, admission to hospital or close patient follow up. Diagnosis - dyspnea, pleural effusion Patient admitted to telemetry in serious condition Labs Test 01/01/19 16:24 White Blood Count 8.6 K/UL (4.8-10.8) Red Blood Count 4.23 M/UL (4.70-6.10) Hemoglobin 11.2 G/DL (14.2-18.0) Hematocrit 35.0 % (42.0-52.0) Mean Corpuscular Volume 83 FL (80-99) Mean Corpuscular Hemoglobin 26.5 PG (27.0-31.0) Mean Corpuscular Hemoglobin Concent 32.1 G/DL (32.0-36.0) Red Cell Distribution Width 16.5 % (11.6-14.8) Platelet Count 267 K/UL (150-450) Mean Platelet Volume 7.4 FL (6.5-10.1) Neutrophils (%) (Auto) 74.6 % (45.0-75.0) Lymphocytes (%) (Auto) 14.0 % (20.0-45.0) Monocytes (%) (Auto) 9.0 % (1.0-10.0) Eosinophils (%) (Auto) 1.4 % (0.0-3.0) Basophils (%) (Auto) 1.0 % (0.0-2.0) Prothrombin Time 11.2 SEC (9.30-11.50) Prothromb Time International Ratio 1.1 (0.9-1.1) Activated Partial Thromboplast Time 29 SEC (23-33) Sodium Level 144 MMOL/L (136-145) Potassium Level 4.4 MMOL/L (3.5-5.1) Chloride Level 108 MMOL/L (98-107) Carbon Dioxide Level 25 MMOL/L (21-32) Anion Gap 11 mmol/L (5-15) Blood Urea Nitrogen 20 mg/dL (7-18) Creatinine 1.4 MG/DL (0.55-1.30) Estimat Glomerular Filtration Rate mL/min (>60) Glucose Level 89 MG/DL (74-106) Calcium Level 9.3 MG/DL (8.5-10.1) Total Bilirubin 1.2 MG/DL (0.2-1.0) Direct Bilirubin 0.2 MG/DL (0.0-0.3) Aspartate Amino Transf (AST/SGOT) 92 U/L (15-37) Alanine Aminotransferase (ALT/SGPT) 88 U/L (12-78) Alkaline Phosphatase 68 U/L (46-116) Total Creatine Kinase 203 U/L (26-308) Creatine Kinase MB 2.5 NG/ML (0.0-3.6) Creatine Kinase MB Relative Index 1.2 Troponin I 0.000 ng/mL (0.000-0.056) Pro-B-Type Natriuretic Peptide 2682 pg/mL (0-125) Total Protein 7.5 G/DL (6.4-8.2) Albumin 3.7 G/DL (3.4-5.0) Globulin 3.8 g/dL Albumin/Globulin Ratio 1.0 (1.0-2.7) EKG Diagnostic Results Rate: normal Rhythm: NSR ST Segments: no acute changes ASA given to the pt in ED: No Rhythm Strip Diag. Results EP Interpretation: yes Rhythm: NSR, no PVC's, no ectopy Chest X-Ray Diagnostic Results Chest X-Ray Diagnostic Results : Chest X-Ray Ordered: Yes # of Views/Limited/Complete: 1 View Indication: Shortness of Breath EP Interpretation: Yes Interpretation: no effusion, no pneumothorax, other - bilateral effusion Impression: Other - pleural effusion Electronically Signed by: Electronically signed by Jose Watson MD CT/MRI/US Diagnostic Results CT/MRI/US Diagnostic Results : Imaging Test Ordered: CTA Chest Impression Aneurysmal ascending aorta, approximately 4 cm. Moderate to large left and moderate right pleural effusions with loculations. Adjacent atelectasis consolidation. Mild interstitial thickening Cardiomegaly and reflux of contrast into the IVC. Last Vital Signs Date Time Temp Pulse Resp B/P (MAP) Pulse Ox O2 Delivery O2 Flow Rate FiO2 01/01/19 16:45 55 21 Room Air 01/01/19 16:34 99.0 190/68 91 Status: improved Disposition: ADMITTED INPATIENT Condition: Serious Referrals: Brian Burns MD (PCP) Jose Watson MD Jan 01, 2019 17:16
[2019-01-01 17:18] LABS: ALANINE AMINOTRANSFERASE 88 U/L (12-78); ALBUMIN 3.7 G/DL (3.4-5.0); ALKALINE PHOSPHATASE 68 U/L (46-116); ASPARTATE AMINO TRANSFERASE 92 U/L (15-37); BILIRUBIN,TOTAL 1.2 MG/DL (0.2-1.0); CKMB 2.5 NG/ML (0.0-3.6); CREATINE KINASE 203 U/L (26-308)
[2019-01-01 17:19] LABS: BILIRUBIN,DIRECT 0.2 MG/DL (0.0-0.3)
--- NOTE | 2019-01-01 17:19 | Diagnostic Imaging Report ---
Indication: Shortness of breath Technique: One view of the chest Comparison: none Findings: Massive left and smaller right pleural effusions are noted. Pulmonary interstitial edema is noted. The heart is obscured Impression: Evidence of congestive heart failure with interstitial edema and bilateral pleural effusions
--- NOTE | 2019-01-01 18:35 | Diagnostic Imaging Report ---
Indication: Shortness of breath Technique: Continuous helical transaxial imaging of the chest was obtained from the thoracic inlet to the upper abdomen during rapid intravenous contrast administration. Arterial phase of enhancement obtained. Coronal 2-D reformats were also obtained and maximum intensity projection images in multiple planes. Study obtained in a Siemens sensation [address] Automatic Exposure Control was utilized. Total Dose length Product (DLP): 1084.[address] Dose Index Volume (CTDIvol): 91.9 mGy Comparison: None Findings: The pulmonary artery is well opacified and shows no filling defects. There is no adenopathy, pleural or pericardial effusions are identified. There is no aortic dissection or aneurysm identified within the chest although the ascending aorta is a large measuring up to 4 cm.. There are bilateral pleural effusions present, moderate on the left and small on the right. There is associated posterior basal compressive atelectasis are present at the interface between aerated lung and the pleural effusions. There is no pericardial effusion. Small nodes are present in the mediastinum. Visualized part of the upper abdomen is unremarkable. Impression: No evidence of pulmonary embolus, aortic dissection or aneurysm. Atherosclerotic disease of aorta. Moderate to large left pleural effusion and [id number] right pleural effusion. [facility] has communicated the preliminary results to the Emergency Department. Their findings are largely concordant with this report. The CT scanner at [facility] is accredited by the [employer] and the scans are performed using dose optimization techniques as appropriate to a performed exam including Automatic Exposure control.
--- NOTE | 2019-01-01 18:38 | NUR ---
ED Nurse Note: pt reeval by dr wilkes, pt aware of plan for admission. pt agrees to plan.
[2019-01-01] MEDS ORDERED: Azithromycin 500 MG in NS 275 ML IV ONE (18:45)
[2019-01-01] MEDS ORDERED: Piperacillin/Tazobactam 3.375 GM in NS 110 ML IVPB ONE (18:45)
[2019-01-01] MEDS ORDERED: FUROSEMIDE40 MG ORAL (18:58)
--- NOTE | 2019-01-01 19:04 | NUR ---
ED Nurse Note: PT placed high fowlers at PT request, "more comfortable," IV Zosyn started, Furosemide given. Urinal at bedside, PT ambulatory, cooperative, calm, on 2L-NC @ 98%. No respiratory distress noted.
--- NOTE | 2019-01-01 19:07 | NUR ---
HAND-OFF: Report given to Dominic Garland RN.
--- NOTE | 2019-01-01 19:09 | NUR ---
ED Nurse Note: RECEIVED REPORT FROM MANOHAR RUSSELL. PATIENT RESTING COMFORTABLY IN BED WITH NAD. NC 2L. AO4. VSS. ASSISTED PT WITH URINAL.
[2019-01-01 19:10] VITALS: BP 179/73
[2019-01-01] MEDS ORDERED: Azithromycin 500mg Inj IV ONE (19:22)
--- NOTE | 2019-01-01 20:24 | NUR ---
ED Nurse Note: REPORT GIVEN TO DREW BERRY FROM TELE.
--- NOTE | 2019-01-01 20:25 | NUR ---
TRANSFER TO FLOOR: PT TRANSFERRED TO TELE FLOOR PER ERMD ORDER, ADMITTING DOCTOR AWARE OF PT'S CONDITION, VSS, RESP EVEN AND UNLABORED ON RA, IV INTACT AND PATENT, BELONGINGS SENT W/ PT W/ COMPLETED LIST, CARE ENDORSED TO DREW BERRY, PT SINUS RHYTHM.
--- NOTE | 2019-01-01 20:27 | NUR ---
NURSE NOTES: Received report from DREW No via phone. Called and left a message with Dr. Burns regarding admission orders and pts high BP. Reported what was given in ER. Awaiting pt arrival.
--- NOTE | 2019-01-01 21:27 | NUR ---
NURSE NOTES: Dr. Burns called back with the following orders: - resume home meds - 2 liters o2 - cardiac diet - iv lasix 40 - thoracentesis in am - hold eliquis tonight - ecg am - cxr am - iv rocephie 1g qd - full code - full admit - cbc bmp bnp am will input orders and will continue to monitor
[2019-01-02] VITALS: BP 150/83
[2019-01-02] MEDS ORDERED: HydrALAZINE 25mg tab ORAL PRN (00:15)
--- NOTE | 2019-01-02 01:00 | Consultation ---
DATE OF CONSULTATION: 01/01/2019 CARDIOLOGY CONSULTATION CONSULTING PHYSICIAN: Marcin Lyons M.D. REFERRING PHYSICIAN: Brian Burns M.D. REASON FOR CONSULT: Congestive heart failure. HISTORY OF PRESENT ILLNESS: This is an 88-year-old male. He has had increasing shortness of breath since last evening. He also has a history of DVT and pulmonary emboli and is on chronic anticoagulation. He apparently took a fall several weeks ago hurting his right hip. That pain has persisted, but improved and has not limited his mobility at this time. He denies chest pain or palpitations. He has been compliant with his medications, although it is not clear about what his regular medications are. PAST MEDICAL HISTORY: Includes hypertension, nephrolithiasis, hyperlipidemia, osteoarthritis, history of DVT and pulmonary emboli, vitamin D deficiency, history of TURP, and prior cataract surgery. MEDICATIONS: Reviewed and reconciled. ALLERGIES: None known. SOCIAL HISTORY: Negative for smoking, alcohol, or substance abuse. REVIEW OF SYSTEMS: A 10-point review of systems performed. All systems negative other than noted above. PHYSICAL EXAMINATION: VITAL SIGNS: Initial blood pressure 192/77, heart rate 62, respiratory rate 16, afebrile. Presently 179/73, 86, 22. Afebrile. HEENT: Oropharynx clear. NECK: Supple. Jugular venous pressure elevated. LUNGS: Bilateral rales and diminished breath sounds. CARDIAC: Regular rhythm and rate. Normal S1, S2 with a 1/6 systolic murmur at the apex. ABDOMEN: Soft and nontender. EXTREMITIES: Reveal no edema. DIAGNOSTIC DATA: Chest x-ray reveals pulmonary venous congestion and pleural effusions. CT angiogram was negative for pulmonary embolism, revealed a 4 cm ascending aortic aneurysm with no signs of disruption. Labs notable for pro-natriuretic peptide over 2600. White count 8.6, hemoglobin 11.2. BUN 20, creatinine 1.4. Troponin 0. Potassium 4.4. EKG, sinus rhythm with nonspecific ST-T wave changes. IMPRESSION: 1. Acute on chronic diastolic congestive heart failure. 2. Pleural effusions, likely loculated. 3. History of DVT and pulmonary embolus, but no signs of acute pulmonary emboli. 4. Ascending aortic aneurysm. 5. Malignant range hypertension. PLAN: 1. Cardiac monitoring. 2. Cautious diuresis. 3. Reassessment for thoracentesis. 4. Maintain full anticoagulation. 5. Titrate and optimize antihypertensives for adequate control of blood pressure and heart failure. 6. Echocardiogram. Marcin Lyons M.D. DR: QUIRINO JOB#: [id number] CC:
[2019-01-02 04:00] VITALS: BP 186/83
[2019-01-02] MEDS ORDERED: SYNTHROID25 MCG ORAL (04:03)
[2019-01-02] MEDS ORDERED: ELIQUIS5 MG PO (04:03)
--- NOTE | 2019-01-02 05:25 | NUR ---
NURSE NOTES: Called and left a message with Dr. Burns and Dr. Lyons regarding pts SB, lowest 42. Awaiting call back.
--- NOTE | 2019-01-02 05:43 | NUR ---
NURSE NOTES: Pt stated he tool his own benicar and lorazepam for HTN this morning. Took meds from pt and didnt give prn hydralazine. Pt also refused synthroid. Will continue to monitor. EKG resulted as SB with possible lateral infarct.
[2019-01-02] MEDS: Levothyroxine 25mcg tab ORAL SCH (06:30)
[2019-01-02 07:06] LABS: BASOPHILS % (AUTO) 1.4 % (0.0-2.0); EOSINOPHILS % (AUTO) 1.9 % (0.0-3.0); HEMATOCRIT 36.2 % (42.0-52.0); HEMOGLOBIN 11.5 G/DL (14.2-18.0); LYMPHOCYTES % (AUTO) 15.9 % (20.0-45.0); MEAN CORPUSCULAR VOLUME 82 FL (80-99); MONOCYTES % (AUTO) 10.8 % (1.0-10.0); PLATELET COUNT 272 K/UL (150-450); RED CELL DISTRIBUTION WIDTH 17.9 % (11.6-14.8); WHITE BLOOD COUNT 7.6 K/UL (4.8-10.8)
[2019-01-02 07:34] LABS: ANION GAP 11 mmol/L (5-15); BLOOD UREA NITROGEN 18 mg/dL (7-18); CALCIUM 9.4 MG/DL (8.5-10.1); CARBON DIOXIDE 26 MMOL/L (21-32); CHLORIDE 105 MMOL/L (98-107); CREATININE 1.6 MG/DL (0.55-1.30); POTASSIUM 3.7 MMOL/L (3.5-5.1); SODIUM 142 MMOL/L (136-145)
--- NOTE | 2019-01-02 07:48 | NUR ---
HAND-OFF: Report given to Glenn RN. Pt stable..
--- NOTE | 2019-01-02 07:48 | NUR ---
NURSE NOTES: Received report from Bianca RUSSELL. Pt in bed eating breakfast. No c/o pain. call light within easy reach. Denied SOB. No acute distress noted. On 2LPM O2 via n/c. IV RAC 20G SL asymptomatic and patent. scheduled for US guided thoracentesis today but per the patient last Eliquis taken on 01/01/[address] Burns notified about it and made MD aware about no tests ordered for thoracentesis. Will continue to plan of care.
--- NOTE | 2019-01-02 07:53 | NUR ---
RADIOLOGY DEPART., CHEST X-RAY COMPLETED. Sherry PATEL/Tawanda ERIC
[2019-01-02 08:00] VITALS: BP 116/49
[2019-01-02] MEDS: Losartan 50mg tab ORAL SCH (08:31)
[2019-01-02] MEDS: LORazepam 0.5mg tab ORAL SCH (08:31)
[2019-01-02] MEDS: Bystolic 2.5mg Tab ORAL SCH (08:32)
[2019-01-02] MEDS ORDERED: Vitamin D 400 INTLU TAB ORAL SCH (09:00)
--- NOTE | 2019-01-02 10:45 | History and Physical Report ---
DATE OF ADMISSION: 01/01/2019 CHIEF COMPLAINT: CHF exacerbation. HISTORY OF PRESENT ILLNESS: The patient is an 88-year-old male. He has a history of DVT and PE, hypertension, and kidney stones. He has recent history of TURP for BPH. He presented with complaints of worsening shortness of breath that started just several days prior to admission. The patient denies any fevers or chills. He has had no cough. He denies any medication or dietary noncompliance with salt. According to the patient, he has had worsening lower extremity edema that started five months ago after his prostate surgery. On evaluation in the emergency room, the patient had a x-ray showed moderate to large left and right pleural effusions with loculations. The patient is now admitted for further evaluation and care. PAST MEDICAL HISTORY: As above. PAST SURGICAL HISTORY: Includes TURP. CURRENT MEDICATIONS: Reconciled and reviewed. ALLERGIES: None. FAMILY HISTORY: None. SOCIAL HISTORY: Negative for alcohol or drugs. REVIEW OF SYSTEMS: GENERAL: No fevers or chills. HEENT: No headaches or visual changes. CARDIOPULMONARY: No chest pain. Positive shortness of breath. GASTROINTESTINAL: No nausea or vomiting. GENITOURINARY: No urgency or frequency. MUSCULOSKELETAL: No joint pain or swelling. NEUROLOGIC: No evidence of seizures. PHYSICAL EXAMINATION: VITAL SIGNS: Temperature 98 degrees, pulse 58, respirations 16, and blood pressure 186/83. GENERAL: The patient is a well-developed, thin male in no apparent distress. HEART: Regular rate and rhythm. LUNGS: Significant for rhonchi and rales, right greater than left. ABDOMEN: Soft, nontender, and nondistended. EXTREMITIES: Significant for 1 to 2+ pitting edema. LABORATORY DATA: Labs showed white count of 8, hemoglobin 11, hematocrit 35, and platelet count 267,000. Sodium 144, potassium 4.4, chloride 108, bicarb 25, BUN 20, and creatinine 1.4. AST was 92, ALT was 88. ASSESSMENT: This is a pleasant male admitted with complaints of shortness of breath secondary to large bilateral pleural effusions of unclear etiology. Possibilities could include congestive heart failure, cannot rule out infectious process, cannot rule out a malignancy. PLAN: 1. Cautious diuresis. 2. Pulmonary and Cardiology consultation. 3. Consider thoracentesis if effusions does not improve. 4. Monitor renal function and electrolytes closely with diuretic treatment. Giacomo Moran M.D. DR: KENDALL JOB#: [id number] CC:
[2019-01-02 11:30] VITALS: BP 151/73
--- NOTE | 2019-01-02 11:54 | Diagnostic Imaging Report ---
Indication: Dyspnea Comparison: 01/01/2019 A single view chest radiograph was obtained. Findings: There is a moderate left pleural effusion and a moderate to small right pleural effusion. The heart is enlarged. There is pulmonary vascular congestion which persists but is probably improved. IMPRESSION: Some improvement in pulmonary vascular congestion with mild to moderate residual. Bilateral pleural effusions again noted.
[2019-01-02] MEDS: Vitamin D 1000 IU Tab ORAL SCH (14:40)
[2019-01-02 16:00] VITALS: BP 116/58
--- NOTE | 2019-01-02 16:57 | NUR ---
CASE MANAGEMENT:REVIEW 88 YR OLD MALE PRESENTED TO ER FROM HOME CC: SOB. HIP PAIN FROM FALL 2 WEEKS AGO SI: BILATERAL PLEURAL EFFUSIONS 99.0 62 16 192/77 93% ON RA H/H-11.2/35.0 BUN+20 CR+1.4 AST/ALT+92/88 IS: 500CC NS BOLUS IV ZOSYN X1 IV AZITHROMYCIN X1 XRAY HIP CTA CHEST CXR : TO TELEMETRY UNIT INTERQUAL CRITERIA MET
--- NOTE | 2019-01-02 17:28 | Pulmonology Progress Note ---
Assessment/Plan Assessment/Plan PE bilateral pleural effusions CHF, likely doubt pneumonia shortness of breath Hypoxemia PLAN maintain same hold eliquis tap in am lasix IV impression, plan, and exam edited and reviewed in detail care discussed with RN Subjective Allergies: Coded Allergies: No Known Allergies (Unverified , 08/22/18) Subjective care noted improved with lasix care reviewed Objective Last 24 Hour Vital Signs Date Time Temp Pulse Resp B/P (MAP) Pulse Ox O2 Delivery O2 Flow Rate FiO2 01/02/19 14:40 151/73 01/02/19 12:00 84 01/02/19 11:30 97.7 58 18 151/73 (99) 93 01/02/19 09:00 Room Air 01/02/19 08:31 116/49 01/02/19 08:00 97.6 72 16 116/49 (71) 95 01/02/19 08:00 69 01/02/19 04:00 98.2 58 16 186/83 (117) 97 01/02/19 04:00 42 01/02/19 00:00 98.1 63 16 150/83 (105) 93 01/02/19 00:00 67 01/01/19 23:19 Nasal Cannula 2.0 01/01/19 20:25 98.9 63 18 179/63 94 Room Air 01/01/19 19:10 99.0 86 22 179/73 95 Nasal Cannula 2.0 01/01/19 18:43 71 22 Nasal Cannula 2.0 Objective WDWN NAD reduced breath sounds bilaterally without rhonchi or wheeze [id number] without MRG NABS nontender no HSM no CC mild edema nonfocal Laboratory Tests 01/02/19 06:37: White Blood Count 7.6, Red Blood Count 4.40L, Hemoglobin 11.5L, Hematocrit 36.2L , Mean Corpuscular Volume 82, Mean Corpuscular Hemoglobin 26.1L, Mean Corpuscular Hemoglobin Concent 31.8L, Red Cell Distribution Width 17.9H, Platelet Count 272, Mean Platelet Volume 6.7, Neutrophils (%) (Auto) 70.0, Lymphocytes (%) (Auto) 15.9L, Monocytes (%) (Auto) 10.8H, Eosinophils (%) (Auto ) 1.9, Basophils (%) (Auto) 1.4, Sodium Level 142, Potassium Level 3.7, Chloride Level 105, Carbon Dioxide Level 26, Anion Gap 11, Blood Urea Nitrogen 18, Creatinine 1.6H, Estimat Glomerular Filtration Rate , Glucose Level 82, Calcium Level 9.4, Pro-B-Type Natriuretic Peptide 3859H Current Medications Medications (Trade) Dose Ordered Sig/German Route PRN Reason Start Time Stop Time Status Last Admin Dose Admin Alfuzosin HCl (Uroxatrol) 10 mg DAILY ORAL 01/02/19 09:00 02/01/19 08:59 01/02/19 09:36 Furosemide (Lasix) 40 mg EVERY 12 HOURS IV 01/02/19 09:00 02/01/19 08:59 01/02/19 08:31 Hydralazine HCl (Apresoline) 25 mg Q6H PRN ORAL SBP above 150 01/02/19 00:15 02/01/19 00:14 01/02/19 14:40 Iohexol (Omnipaque) 100 mg NOW PRN INJ Radiology Procedure 01/01/19 16:15 01/03/19 16:13 Levothyroxine Sodium (Synthroid) 25 mcg DAILY@0630 ORAL 01/02/19 06:30 02/01/19 06:29 Lorazepam (Ativan) 0.5 mg DAILY ORAL 01/02/19 09:00 01/09/19 08:59 Losartan Potassium (Cozaar) 100 mg DAILY ORAL 01/02/19 09:00 02/01/19 08:59 Nebivolol (Bystolic) 5 mg DAILY ORAL 01/02/19 09:00 02/01/19 08:59 Pantoprazole (Protonix) 40 mg DAILY ORAL 01/02/19 09:00 02/01/19 08:59 01/02/19 08:32 Pravastatin Sodium (Pravachol) 40 mg BEDTIME ORAL 01/02/19 21:00 02/01/19 20:59 Vitamin D (Vitamin D) 1,000 intlu DAILY ORAL 01/02/19 14:00 02/01/19 13:59 01/02/19 14:40 Brian Burns MD Jan 02, 2019 17:28
--- NOTE | 2019-01-02 19:47 | NUR ---
HAND-OFF: Report given to Jorje RN. Pt remains stale.
--- NOTE | 2019-01-02 19:48 | NUR ---
NURSE NOTES: Received report from Tatiana Rodgers RN. Patient in bed AAO X4 with no complaints of acute pain or discomfort at this time. Kept clean, dry,and comfortable in bed. On 2L NC with no S/S of SOB or resp. distress observed. IV line intact and patent with continuous cardiac monitoring in place per protocol. Ambulates to the bathroom with minimal assistance from staff. Safety precaution in place; siderails X2 up, call light within reach, bed in lowest position, brakes and alarm on at all times. Needs and wants anticipated and attended, will continue plan of care and monitor for any changes noted. Scheduled for Thoracentesis tomorrow 01/03/19
[2019-01-02] MEDS ORDERED: VITAMIN D1000 UNI1 ORAL (19:49)
[2019-01-02] MEDS ORDERED: BENICAR20 MG ORAL (19:49)
[2019-01-02 20:00] VITALS: BP 139/83
--- NOTE | 2019-01-02 21:00 | NUR ---
NURSE NOTES: Patient refused HS meds. Explained risks and benefits X3, still refused. Will continue to monitor.
[2019-01-03 04:00] VITALS: BP 145/56
--- NOTE | 2019-01-03 04:00 | NUR ---
NURSE NOTES: Patient in bed asleep with no complaints of acute pain. Will continue to monitor.
[2019-01-03 04:41] LABS: ALANINE AMINOTRANSFERASE 49 U/L (12-78); ALBUMIN 3.3 G/DL (3.4-5.0); ALKALINE PHOSPHATASE 59 U/L (46-116); ANION GAP 6 mmol/L (5-15); ASPARTATE AMINO TRANSFERASE 30 U/L (15-37); BLOOD UREA NITROGEN 24 mg/dL (7-18); CALCIUM 9.2 MG/DL (8.5-10.1); CARBON DIOXIDE 29 MMOL/L (21-32); CHLORIDE 107 MMOL/L (98-107); CREATININE 1.9 MG/DL (0.55-1.30); POTASSIUM 3.6 MMOL/L (3.5-5.1); SODIUM 142 MMOL/L (136-145)
[2019-01-03] MEDS: Levothyroxine 25mcg tab ORAL SCH (06:14)
--- NOTE | 2019-01-03 07:00 | Progress Note ---
DATE: 01/02/2019 SUBJECTIVE: The patient has been started on diuretic therapy last night. He is still short of breath. Monitored rhythm, sinus. OBJECTIVE: VITAL SIGNS: Blood pressure 116/49 to 186/83, heart rate 42-84, respiratory 16-18. The patient is afebrile. LUNGS: Diminished breath sounds. Bilateral rales. HEART: Jugular venous pressure elevation. Regular rhythm and rate. Normal S1, S2 with a 1/6 systolic apical murmur. ABDOMEN: Soft. EXTREMITIES: There is trace dependent edema. LABORATORY DATA: White count 7.6, hemoglobin 11.5. Pro-natriuretic peptide 3800. BUN 18, creatinine 1.6, potassium 3.7. Venous duplex scan was negative for DVT. IMPRESSION: 1. Acute on chronic diastolic congestive heart failure. 2. Paroxysmal sinus bradycardia. 3. Pleural effusion. 4. Acute on chronic kidney disease. 5. History of pulmonary embolus, presently with no signs of venous thrombosis or acute pulmonary embolus. PLAN: 1. Continue diuresis. 2. Monitor volume status and cardiorenal parameters. 3. Hold anticoagulation. 4. DVT prophylaxis. 5. Titrate anti-failure and antihypertensive medications based on clinical parameters. 6. Echocardiogram to reassess left ventricular function. Marcin Lyons M.D. DR: Roberto JOB#: [id number] CC:
--- NOTE | 2019-01-03 07:28 | NUR ---
HAND-OFF: Report given to Tatiana Rodgers RN. PAtient in bed with no S/S of distress. Endorsed plan of care.
--- NOTE | 2019-01-03 07:28 | NUR ---
NURSE NOTES: Received report from Jorje RUSSELL. AOX4 and able to make needs known. No c/o pain. IV is intact and patent. No acute distress noted. Verbalized some anxiousness due to the procedure but able to understand the importance of the procedure. Bed in locked and side rails x2 up for safety. Will continue to plan of care.
[2019-01-03 08:00] VITALS: BP 139/66
--- NOTE | 2019-01-03 08:38 | General Progress Note ---
Assessment/Plan Problem List: (1) Pleural effusion ICD Codes: J90 - Pleural effusion, not elsewhere classified SNOMED: 46846310 (2) Dyspnea ICD Codes: R06.00 - Dyspnea, unspecified SNOMED: 765263299 Qualifiers: Qualified Codes: R06.00 - Dyspnea, unspecified (3) Enlarged prostate ICD Codes: N40.0 - Benign prostatic hyperplasia without lower urinary tract symptoms SNOMED: 591249701 (4) Bladder stone ICD Codes: N21.0 - Calculus in bladder SNOMED: 59511490 Status: stable Assessment/Plan: diuresis held due to increased cr repeat labs in am o2 resp rx thoracentesis today Subjective ROS Limited/Unobtainable: No Constitutional: Reports: malaise, weakness HEENT: Reports: no symptoms Cardiovascular: Reports: no symptoms Respiratory: Reports: shortness of breath Gastrointestinal/Abdominal: Reports: no symptoms Genitourinary: Reports: no symptoms Neurologic/Psychiatric: Reports: no symptoms Endocrine: Reports: no symptoms Hematologic/Lymphatic: Reports: no symptoms Allergies: Coded Allergies: No Known Allergies (Unverified , 08/22/18) All Systems: reviewed and negative except above Subjective no events. w/o complaints except sob. not any better today. scheduled for thoracentesis today cr trending up Objective Last 24 Hour Vital Signs Date Time Temp Pulse Resp B/P (MAP) Pulse Ox O2 Delivery O2 Flow Rate FiO2 01/03/19 08:00 99.1 55 18 139/66 (90) 95 01/03/19 04:00 47 01/03/19 04:00 97.9 56 18 145/56 (85) 95 01/03/19 00:00 45 01/02/19 21:00 Nasal Cannula 2.0 01/02/19 20:00 59 01/02/19 20:00 97.9 56 18 139/83 (101) 94 01/02/19 16:00 97.8 61 17 116/58 (77) 93 01/02/19 16:00 48 01/02/19 14:40 151/73 01/02/19 12:00 84 01/02/19 11:30 97.7 58 18 151/73 (99) 93 01/02/19 09:00 Room Air Laboratory Tests 01/03/19 04:10: Activated Partial Thromboplast Time 27, Sodium Level 142, Potassium Level 3.6, Chloride Level 107, Carbon Dioxide Level 29, Anion Gap 6, Blood Urea Nitrogen 24H, Creatinine 1.9H, Estimat Glomerular Filtration Rate , Glucose Level 90, Calcium Level 9.2, Magnesium Level 2.2, Total Bilirubin 1.0, Aspartate Amino Transf (AST/SGOT) 30, Alanine Aminotransferase (ALT/SGPT) 49, Alkaline Phosphatase 59, Total Protein 6.6, Albumin 3.3L, Globulin 3.3, Albumin/Globulin Ratio 1.0 Height (Feet): 5 Height (Inches): 3.00 Weight (Pounds): 134 General Appearance: WD/WN, alert Neck: supple Cardiovascular: regular rhythm Respiratory/Chest: chest wall non-tender, no accessory muscle use, decreased breath sounds Abdomen: normal bowel sounds, non tender, soft, no organomegaly Edema: no edema noted Arm (L), no edema noted Arm (R), no edema noted Leg (L), no edema noted Leg (R), no edema noted Pedal (L), no edema noted Pedal (R), no edema noted Generalized Giacomo Moran MD Jan 03, 2019 08:38
[2019-01-03] MEDS: Bystolic 2.5mg Tab ORAL SCH (08:56)
[2019-01-03] MEDS: Losartan 50mg tab ORAL SCH (08:56)
[2019-01-03] MEDS: LORazepam 0.5mg tab ORAL SCH (08:56)
[2019-01-03] MEDS: Vitamin D 1000 IU Tab ORAL SCH (08:57)
[2019-01-03] MEDS ORDERED: Vitamin D 400 INTLU TAB ORAL SCH ×2 (09:00)
--- NOTE | 2019-01-03 10:11 | Pulmonology Progress Note ---
Assessment/Plan Assessment/Plan PE bilateral pleural effusions CHF, likely doubt pneumonia shortness of breath Hypoxemia PLAN maintain same hold eliquis tap today lasix IV discontinued monitor hope to dc with HH impression, plan, and exam edited and reviewed in detail care discussed with RN Subjective Allergies: Coded Allergies: No Known Allergies (Unverified , 08/22/18) Subjective care noted improved with lasix care reviewed and discussed Objective Last 24 Hour Vital Signs Date Time Temp Pulse Resp B/P (MAP) Pulse Ox O2 Delivery O2 Flow Rate FiO2 01/03/19 09:00 Nasal Cannula 2.0 01/03/19 08:56 139/66 01/03/19 08:00 99.1 55 18 139/66 (90) 95 01/03/19 04:00 47 01/03/19 04:00 97.9 56 18 145/56 (85) 95 01/03/19 00:00 45 01/02/19 21:00 Nasal Cannula 2.0 01/02/19 20:00 59 01/02/19 20:00 97.9 56 18 139/83 (101) 94 01/02/19 16:00 97.8 61 17 116/58 (77) 93 01/02/19 16:00 48 01/02/19 14:40 151/73 01/02/19 12:00 84 01/02/19 11:30 97.7 58 18 151/73 (99) 93 Objective WDWN NAD reduced breath sounds bilaterally without rhonchi or wheeze [id number] without MRG NABS nontender no HSM no CC mild edema nonfocal Laboratory Tests 01/03/19 04:10: Activated Partial Thromboplast Time 27, Sodium Level 142, Potassium Level 3.6, Chloride Level 107, Carbon Dioxide Level 29, Anion Gap 6, Blood Urea Nitrogen 24H, Creatinine 1.9H, Estimat Glomerular Filtration Rate , Glucose Level 90, Calcium Level 9.2, Magnesium Level 2.2, Total Bilirubin 1.0, Aspartate Amino Transf (AST/SGOT) 30, Alanine Aminotransferase (ALT/SGPT) 49, Alkaline Phosphatase 59, Total Protein 6.6, Albumin 3.3L, Globulin 3.3, Albumin/Globulin Ratio 1.0 Current Medications Medications (Trade) Dose Ordered Sig/German Route PRN Reason Start Time Stop Time Status Last Admin Dose Admin Alfuzosin HCl (Uroxatrol) 10 mg DAILY ORAL 01/02/19 09:00 02/01/19 08:59 01/03/19 08:57 Hydralazine HCl (Apresoline) 25 mg Q6H PRN ORAL SBP above 150 01/02/19 00:15 02/01/19 00:14 01/02/19 14:40 Iohexol (Omnipaque) 100 mg NOW PRN INJ Radiology Procedure 01/01/19 16:15 01/03/19 16:13 Levothyroxine Sodium (Synthroid) 25 mcg DAILY@0630 ORAL 01/02/19 06:30 02/01/19 06:29 Lorazepam (Ativan) 0.5 mg DAILY ORAL 01/02/19 09:00 01/09/19 08:59 01/03/19 08:56 Losartan Potassium (Cozaar) 100 mg DAILY ORAL 01/02/19 09:00 02/01/19 08:59 01/03/19 08:56 Nebivolol (Bystolic) 5 mg DAILY ORAL 01/02/19 09:00 02/01/19 08:59 01/03/19 08:56 Pantoprazole (Protonix) 40 mg DAILY ORAL 01/02/19 09:00 02/01/19 08:59 01/03/19 08:56 Pravastatin Sodium (Pravachol) 40 mg BEDTIME ORAL 01/02/19 21:00 02/01/19 20:59 Vitamin D (Vitamin D) 1,000 intlu DAILY ORAL 01/02/19 14:00 02/01/19 13:59 01/03/19 08:57 Brian Burns MD Jan 03, 2019 10:11
--- NOTE | 2019-01-03 11:08 | NUR ---
CASE MANAGEMENT:REVIEW 01/03/19 SI: BILATERAL PLEURAL EFFUSIONS 99.1 55 18 136/66 95% ON 2L BUN+24 CR+1.9 BNP 3859-01/02 IS: PRAVACHOL PO HS BYSTOLIC PO QD COZAAR PO QD PROTONIX PO QD HYDRALAZINE PO Q6/PRN : TO TELEMETRY UNIT PLAN: CT GUIDED THORA ECHOCARDIOGRAM DOWN GRADE TO MED SURG DC WITH
--- NOTE | 2019-01-03 12:00 | NUR ---
NURSE NOTES: Pt went to radiology dept for thoracentesis
--- NOTE | 2019-01-03 12:57 | Diagnostic Imaging Report ---
APPROVED REPORT CPT Code: 99874 Present Symptoms Comments: R/O DVT, Edema No signs of DVT seen bilaterally. Patent CFV, SFV(prox, dist), POP v, Calf veins
--- NOTE | 2019-01-03 13:10 | NUR ---
NURSE NOTES: The patient returned back from Radiology dept after procedure done. 1.4L fluid removed from thoracentesis
--- NOTE | 2019-01-03 13:15 | Diagnostic Imaging Report ---
Indication: Status post thoracentesis Comparison: 01/02/2019 A single view chest radiograph was obtained. Findings: No pneumothorax identified. Mild blunting of the left costophrenic angle and obscuring of the diaphragm due to presence of a residual pleural effusion which is improved since the preprocedure chest x-ray. There is also evidence of a right pleural effusion. Cardiomegaly is present. IMPRESSION: No pneumothorax following left thoracentesis
--- NOTE | 2019-01-03 13:16 | Diagnostic Imaging Report ---
Indications: Pleural effusion Technique: Ultrasound used to localize optimal puncture site. Sterile prepping and draping of the left lower chest performed. Local anesthesia with 1% lidocaine. Dermatotomy made. Puncture of the pleural space using thoracentesis needle. Stylet removed. Catheter placed to vacuum bottle suction. Fluid was aspirated. Patient tolerated procedure well, without immediate complication. Fluid also sent for diagnostic thoracentesis is requested. Findings: Followup sonography demonstrates complete resolution of pleural fluid. Followup chest x-ray is pending. Impression: Successful ultrasound-guided left thoracentesis, yielding 1.4 liters of fluid
[2019-01-03 14:30] VITALS: BP 102/57
--- NOTE | 2019-01-03 15:30 | NUR ---
NURSE NOTES: Previous home health : [facility]
--- NOTE | 2019-01-03 15:46 | NUR ---
Discharge: Patient is being discharged from medical care. Awake, alert and oriented x4. After care instructions, including referral to community resources were given. Patient verbalized understanding of After care instructions; at this time patient does not request medications, equipment or placement. Patient signed patient consent in the medical record for patient destination upon discharge. Pt would discharge home with own meds via taxi. Taxi provided and voucher given to the patient. Instructed the patient to take a shower tomorrow after remove the bandage from his back. All medical devices such as IV, lokie engineer and ID band were removed. Patient ambulated out with all personal belongings with steady gait with RN' s assist. Home health will be follow up the patient upon discharge
--- NOTE | 2019-01-04 00:15 | Progress Note ---
DATE: 01/03/2019 CARDIOLOGY PROGRESS NOTE SUBJECTIVE: The patient does feel better, but is still short of breath. He is scheduled for thoracentesis. Diuretic dose was held due to rising renal parameters. OBJECTIVE: VITAL SIGNS: Blood pressure 139/66, pulse 55, and respirations. LUNGS: Diminished breath sounds. HEART: Regular rhythm and rate. Normal S1, S2. A 1/6 systolic murmur at apex. ABDOMEN: Soft and nontender. EXTREMITIES: With trace edema. LABORATORY DATA: Sodium 142, potassium 3.6, BUN 24, creatinine 1.9, bicarb 29, and magnesium 2.2. Albumin 3.3. IMPRESSIONS: 1. Acute on chronic diastolic congestive heart failure. 2. Pleural effusion. 3. Mild protein-calorie malnutrition. 4. Acute on chronic renal failure due to diuresis. 5. Hypertensive heart disease. PLAN: 1. Hold diuresis. 2. Complete thoracentesis. 3. Continue current antihypertensives. 4. Maintain cardiac monitoring. 5. Reassess renal parameters prior to resuming maintenance diuretic dose. Marcin Lyons M.D. DR: SHYAM JOB#: [id number] CC:
--- NOTE | 2019-01-04 13:40 | Discharge Summary ---
Discharge Summary Discharge Summary _ DATE OF ADMISSION: 01/01/2019 DATE OF DISCHARGE: 01/03/2019 DISCHARGED BY: Dr. Burns REASON FOR ADMISSION: 88 years old male with past medical history of DVT, PE, hypertension, kidney stone, recent TURP for BPH, presented with shortness of breath , started several days prior to admission. Patient denied fever and chills. Cough. Patient reported being compliant with his medication. He reported worsening lower extremity edema 5 months ago after prostate surgery. Upon evaluation in emergency department noted elevated blood pressure 192/77 . Laboratory work-up revealed no leukocytosis, hemoglobin 11.2, hematocrit . BUN 20 creatinine 1.4. Glucose 89. AST 92 , ALT 88 . Pro BNP - 2682 . ECG revealed normal sinus rhythm, no acute ischemic changes . CXR revealed congestive heart failure with interstitial edema and bilateral pleural effusion. CTA of the chest revealed no evidence of pulmonary embolus, aortic dissection or aneurysm. Atherosclerotic disease of aorta. Moderate to large left pleural effusion and [id number] right pleural effusion. Patient admitted to telemetry floor for further management. CONSULTANTS: mining teacher internal medicine Dr. Moran [facility]SE: Patient admitted to telemetry floor and started on cautious diuresis. Tax Revenue Officer and mining teacher closely followed. Volumes and cardiorenal parameters were closely monitored. Electrolytes corrected as needed, and nephrotoxic's were avoided. Supplemental oxygen provided to keep pulse oximetry above 92%, bronchodilator therapy provided as needed. Venous duplex bilateral lower extremity revealed no evidence of DVT. Follow-up chest x-ray revealed some improvement in pulmonary vascular congestion. Eliquis was on hold prior to paracentesis. On 01/03 patient undergone ultrasound-guided thoracentesis of left pleural effusion , yielding 1.4 L of fluid. Pleural fluid culture was negative. Renal parameters showed worsening creatinine from 1.5 down to 1.9. Lasix IV discontinued. Buffing Wheel Raker recommended to reassess renal parameters prior to resuming maintenance diuretic dose. Blood pressure was managed with multiply regimen of antihypertensive , including beta chelsie and ARB. Hydralazine was on board as needed. Statin continued. Levothyroxine continued. Empiric antibiotics intially provided. No leukocytosis . no fevers. Patient was followed up with CXR. Tax Revenue Officer doubted pneumonia. Antibiotics stopped. Chest x-ray after thoracentesis revealed no evidence of pneumothorax. Patient clinically stabilized and was ready for discharge home. FINAL DIAGNOSES: Acute on chronic diastolic congestive heart failure Pleural effusion s/p thoracentesis left pleural effusion Mild protein calorie malnutrition Acute on chronic renal failure due to diuresis Hypertensive heart disease DISCHARGE MEDICATIONS: See Medication Reconciliation list. DISCHARGE INSTRUCTIONS: Patient was discharged home with home health services. Follow up with primary care provider in one week. I have been assigned to dictate discharge summary for this account. I was not involved in the patient's management. Tish Alejandra NP Jan 04, 2019 13:40
--- NOTE | 2019-01-04 14:52 | Cardiology Report ---
APPROVED REPORT EKG Measurement Heart [id number] [id number] Normal sinus rhythm Nonspecific ST abnormality Abnormal ECG
--- NOTE | 2019-01-13 12:12 | Cardiology Report ---
APPROVED REPORT EXAM: Two-dimensional and M-mode echocardiogram with Doppler and color Doppler. INDICATION Congestive Heart Failure M-Mode DIMENSIONS IVSd1.0 (0.7-1.1cm)Left Atrium (MM)3.8 (1.6-4.0cm) LVDd4.2 (3.5-5.6cm)Aortic Root2.6 (2.0-3.7cm) PWd1.0 (0.7-1.1cm)Aortic Cusp Exc.1.8 (1.5-2.0cm) IVSs1.6 cm LVDs2.6 (2.5-4.0cm) PWs1.2 cm Normal left ventricular chamber size, systolic function and wall motion. Left ventricular ejection fraction estimated to be 55-60%. No left ventricular hypertrophy. Small circumferential pericardial effusion. Large left pleural effusion. All other cardiac chamber sizes are within normal limits. Focal aortic valve sclerosis with adequate cusp excursion. Thickened mitral valve leaflets with normal excursion. Mitral annulus and aortic root calcification. Pulmonic valve not well visualized. Normal tricuspid valve structure. IVC measured at 2.2 cm with physiologic collapse. A color flow and spectral Doppler study was performed and revealed: Moderate aortic regurgitation. Moderate mitral regurgitation. Mitral inflow indicates normal left ventricular diastolic function. Mild tricuspid regurgitation. Tricuspid systolic velocities suggests peak right ventricular systolic pressure of 51 mmHg, consistent with moderate pulmonary hypertension. Pulmonic regurgitation present.
== END 2019-01-03 15:34 | disposition home health service (06) | DRG 291 ==
LOC: EMR 16:13 → 2E 17:38 → EDBEDREQ 20:01
PROC: 0W9B3ZZ Drainage of Left Pleural Cavity, Percutaneous Approach (ICD-10-PCS; principal; 2019-01-03)
DX: I13.0 Hypertensive heart and chronic kidney disease with heart failure and stage 1 through stage 4 chronic kidney disease, or unspecified chronic kidney disease (principal); I50.33 Acute on chronic diastolic (congestive) heart failure; N17.9 Acute kidney failure, unspecified; J91.8 Pleural effusion in other conditions classified elsewhere; E44.1 Mild protein-calorie malnutrition; N18.9 Chronic kidney disease, unspecified; R06.00 Dyspnea, unspecified; Z91.81 History of falling; Z86.711 Personal history of pulmonary embolism; Z86.718 Personal history of other venous thrombosis and embolism; E78.5 Hyperlipidemia, unspecified; M19.90 Unspecified osteoarthritis, unspecified site; I71.4 Abdominal aortic aneurysm, without rupture; R09.02 Hypoxemia; R00.1 Bradycardia, unspecified; N40.0 Benign prostatic hyperplasia without lower urinary tract symptoms; N21.0 Calculus in bladder
CPT/HCPCS: 36415; 71045; 71275; 76942; 80048; 80053; 82248; 82550; 82553; 83735; 83880; 84484; 85025; 85610; 85730; 87070; 87205; 88104; 93005; 93306; 93970; 96365; 96368; 99285

== ENCOUNTER → 2019-01-21 | Outpatient (CLI) | payer MEDICARE, MEDICAID ==
[~2019-01-21] VITALS: Ht 160 cm; Wt 61.7 kg
[~2019-01-21] MED LIST changes: +ELIQUIS5 MG PO; +FUROSEMIDE40 MG ORAL; +SYNTHROID25 MCG ORAL; +UNOBMED; +VITAMIN D1000 UNI1 ORAL
[2019-01-21 10:00] VITALS: BP 182/76
--- NOTE | 2019-01-21 11:12 | Pre-Procedure Note/Attestation ---
Pre-Procedure Note/Attestation Complete Prior to Procedure Planned Procedure: left Procedure Narrative: thoracentesis Indications for Procedure Pre-Operative Diagnosis: pleural effusion Attestation I attest that I discussed the nature of the procedure; its benefits; risks and complications; and alternatives (and the risks and benefits of such alternatives ), prior to the procedure, with the patient (or the patient's legal loan servicing representative). I attest that, if there was a reasonable possibility of needing a blood transfusion, the patient (or the patient's legal loan servicing representative) was given the [facility] standardized written summary, pursuant to the [place] Blood Safety Act ([place] Health and Safety Code # 1645, as amended). I attest that I re-evaluated the patient just prior to the surgery and that there has been no change in the patient's H&P, except as documented below: Singh Loo MD Jan 21, 2019 11:12
[2019-01-21 11:20] VITALS: BP 167/72
--- NOTE | 2019-01-21 11:38 | Brief Operative Note ---
Immediate Post Operative Note Operative Note Pre-op Diagnosis: pleural effusion Procedure: L thoracentesis Post-op Diagnosis: same as pre-op Surgeon: Nicki Yu Anesthesia: local Specimen: yes - 50 ml fluid sent to lab Complications: none Condition: stable Fluids: none Implant(s) used?: No Singh Yu MD Jan 21, 2019 11:38
[2019-01-21 11:40] VITALS: BP 145/65
--- NOTE | 2019-01-21 11:45 | Diagnostic Imaging Report ---
Indication: Status post thoracentesis Technique: One view of the chest Comparison: 01/03/2019 Findings: Previously demonstrated left pleural effusion has largely resolved. Haziness of the left lung base may reflect some residual pleural fluid, versus atelectasis. The left lung is otherwise clear. There is again demonstrated a right-sided pleural effusion. This appears somewhat smaller than on the previous study. Impression: Decreased or resolved left pleural effusion, status post thoracentesis. No radiographic clinical indication Persistent right pleural effusion
--- NOTE | 2019-01-21 11:53 | Diagnostic Imaging Report ---
Indications: Pleural effusion Technique: Ultrasound used to localize optimal puncture site. Sterile prepping and draping chest. Local anesthesia with 1% lidocaine. Under real-time ultrasound guidance, puncture pleural space using thoracentesis needle. Stylet removed. Catheter placed to vacuum bottle suction. Total 1050 milliliters of clear yellow fluid aspirated. Patient tolerated procedure well, without immediate complication. Findings: Followup sonography demonstrates small amount of residual fluid Impression: Successful ultrasound-guided thoracentesis, yielding 1050 milliliters of fluid
[2019-01-21 12:00] VITALS: BP 137/69
[2019-01-21 12:30] VITALS: BP 126/48
== END | disposition home or self-care (01) ==
LOC: RAD 08:52
DX: J90 Pleural effusion, not elsewhere classified (principal)
CPT/HCPCS: 71045; 76942; 87070; 87116; 87205

== ENCOUNTER 2019-03-07 10:02 | Outpatient (CLI) | payer MEDICARE, MEDICAID ==
[~2019-03-07] VITALS: Ht 161 cm; Wt 61.2 kg
[2019-03-07 10:37] LABS: BASOPHILS % (AUTO) 1.4 % (0.0-2.0); EOSINOPHILS % (AUTO) 1.7 % (0.0-3.0); HEMATOCRIT 39.3 % (42.0-52.0); HEMOGLOBIN 12.3 G/DL (14.2-18.0); LYMPHOCYTES % (AUTO) 18.9 % (20.0-45.0); MEAN CORPUSCULAR VOLUME 84 FL (80-99); MONOCYTES % (AUTO) 7.4 % (1.0-10.0); NEUTROPHILS % (AUTO) 70.7 % (45.0-75.0); PLATELET COUNT 196 K/UL (150-450); RED BLOOD COUNT 4.69 M/UL (4.70-6.10); RED CELL DISTRIBUTION WIDTH 15.9 % (11.6-14.8); WHITE BLOOD COUNT 6.6 K/UL (4.8-10.8)
[2019-03-07 11:29] VITALS: BP 169/75
[2019-03-07] MEDS ORDERED: FUROSEMIDE20 M1 ORAL (11:33)
[2019-03-07 12:30] VITALS: BP 177/67
[2019-03-07 12:45] VITALS: BP 158/65
--- NOTE | 2019-03-07 13:12 | Pre-Procedure Note/Attestation ---
Pre-Procedure Note/Attestation Complete Prior to Procedure Planned Procedure: left Procedure Narrative: thoracentesis Indications for Procedure Pre-Operative Diagnosis: pleural effusion Attestation I attest that I discussed the nature of the procedure; its benefits; risks and complications; and alternatives (and the risks and benefits of such alternatives ), prior to the procedure, with the patient (or the patient's legal software support representative). I attest that, if there was a reasonable possibility of needing a blood transfusion, the patient (or the patient's legal software support representative) was given the [facility] standardized written summary, pursuant to the [place] Blood Safety Act ([place] [facility] and Safety Code # 1645, as amended). I attest that I re-evaluated the patient just prior to the surgery and that there has been no change in the patient's H&P, except as documented below: Singh Loo MD Mar 07, 2019 13:12
--- NOTE | 2019-03-07 13:13 | Brief Operative Note ---
Immediate Post Operative Note Operative Note Pre-op Diagnosis: pleural effusion Procedure: thoracentesis Post-op Diagnosis: same as pre-op Surgeon: Nicki LOO Specimen: none Complications: none Fluids: none Implant(s) used?: No Singh Loo MD Mar 07, 2019 13:13
[2019-03-07 13:15] VITALS: BP 151/69
[2019-03-07 13:45] VITALS: BP 160/56
[2019-03-07 14:12] VITALS: BP 137/73
--- NOTE | 2019-03-07 14:19 | Diagnostic Imaging Report ---
Indication: Status post thoracentesis Technique: One view of the chest Comparison: 01/21/2019 Findings: There is very slight blunting of the left costophrenic sulcus, could represent a residual small pleural effusion. The left lung and pleural space are otherwise clear. There is no pneumothorax. There is minimal blunting of the right costophrenic sulcus, decreased from the prior exam, likely reflecting decreased pleural fluid. Heart is borderline enlarged Impression: Only minimal residual left pleural effusion, post thoracentesis. No radiographically evident complication of thoracentesis demonstrated Suspect minimal right pleural effusion Stable borderline cardiomegaly.
--- NOTE | 2019-03-08 10:01 | Diagnostic Imaging Report ---
Indications: Pleural effusion Technique: Ultrasound used to localize optimal puncture site. Sterile prepping and draping left chest. Local anesthesia with 1% lidocaine. Under real-time ultrasound guidance, puncture pleural space using thoracentesis needle. Stylet removed. Catheter placed to vacuum bottle suction. Total 900 milliliters of clear yellow fluid aspirated. Patient tolerated procedure well, without immediate complication. Findings: Followup sonography demonstrates some residual pleural fluid but significantly decreased. Impression: Successful ultrasound-guided thoracentesis, yielding 900 milliliters of fluid
== END 2019-03-07 14:30 | disposition home or self-care (01) ==
LOC: RAD 10:02
DX: J90 Pleural effusion, not elsewhere classified (principal)
CPT/HCPCS: 36415; 71045; 76942; 85025; 85610; 85730